=== PATIENT | male | born 1945 | race American Indian/Alaskan Native ===

== ENCOUNTER 2019-04-05 09:46 | Emergency (ER) | payer MEDICARE ==
[2019-04-05 09:51] VITALS: BP 176/105
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
[2019-04-05 11:18] LABS: Basophils % (Auto) 0.3 % (0.0-1.8); Eosinophils % (Auto) 0.3 % (0.0-4.3); Hematocrit 35.7 % (35.5-45.6); Hemoglobin 11.8 gm/dl (11.8-15.2); Lymphocytes # (Auto) 1.4 K/mm3 (1.2-5.4); Lymphocytes % (Auto) 18.8 % (13.4-35.0); Mean Corpuscular HGB Conc 33 % (32-34); Mean Corpuscular Volume 85 fl (84-94); Monocytes # (Auto) 0.7 K/mm3 (0.0-0.8); Monocytes % (Auto) 10.1 % (0.0-7.3); Platelet Count 364 K/mm3 (140-440); Red Blood Count 4.21 M/mm3 (3.65-5.03); Red Cell Distribution Width 14.1 % (13.2-15.2)
[2019-04-05 11:27] LABS: INR 1.1 (0.87-1.13)
[2019-04-05 11:28] LABS: Partial Thromboplastin Time 29.2 Sec. (24.2-36.6)
[2019-04-05 11:45] LABS: Alanine Aminotransferase < 5 units/L (7-56); Albumin 3.1 g/dL (3.9-5); BUN/Creatinine Ratio 20; Blood Urea Nitrogen 12 mg/dL (9-20); Calcium 8.6 mg/dL (8.4-10.2); Hemolysis Index 0
--- NOTE | 2019-04-05 12:01 | Cat Scan Report ---
CT HEAD WITHOUT CONTRAST: HISTORY: Altered mental status. TECHNIQUE: Sequential 2.5mm CT images. COMPARISON: none. FINDINGS: Cerebral Parenchyma: Within normal limits. Cerebellum: Within normal limits. Brainstem: Within normal limits. Ventricles: Normal. Sella: Normal. Extra-axial spaces: Normal. Basal Cisterns: Normal. Intracranial Hemorrhage: None. Midline Shift: None. Calvarium: Normal. Sinuses: Normal. Mastoid Air Cells: Normal. Visualized Orbits: Normal. IMPRESSION: Cranial CT scan within normal limits.
--- NOTE | 2019-04-05 12:02 | XRay Report ---
AP CHEST: HISTORY: Cough AP view of the chest demonstrates a normal mediastinal and cardiac contour with clear lungs and normal bony and soft tissue structures. Calcified granuloma overlying the lingula is noted. IMPRESSION: Unremarkable AP chest.
[2019-04-05 13:58] LABS: Bacteria,Urine 4+ /HPF (Negative); Bilirubin,Urine NEG (Negative); Blood,Urine MOD (Negative); Color,Urine Amber (Yellow); Mucus,Urine 3+ /HPF
== END 2019-04-05 14:38 | disposition home or self-care (01) ==
LOC: ED 09:46
DX: N39.0 Urinary tract infection, site not specified (principal); R63.0 Anorexia
CPT/HCPCS: 36415; 70450; 71045; 80053; 81001; 83735; 83880; 84484; 85025; 85610; 85730; 93005; 93010

== ENCOUNTER 2019-04-24 19:00 | Inpatient (IN) | payer MEDICARE ==
[2019-04-24] MEDS ORDERED: ASPIRIN PO ONE (19:27)
[2019-04-24 20:15] LABS: BUN/Creatinine Ratio 19; Blood Urea Nitrogen 15 mg/dL (9-20); Hemolysis Index 0
--- NOTE | 2019-04-24 20:19 | XRay Report ---
PROCEDURE: XR CHEST 1V AP TECHNIQUE: Chest radiograph single view. HISTORY: Chest Pain COMPARISONS: None . FINDINGS: There is no evidence of infiltrate, pneumothorax or pleural fluid collection. The cardiac silhouette is normal size. The thoracic aorta is mildly tortuous. There is prominence of the ascending thoracic aorta which can be seen with aortic aneurysm in this region. The bony structures are unremarkable. The visualized portion of the upper abdomen is notable for a moderate amount of stool in the visualiz ed portion of the colon. IMPRESSION: 1. No evidence of an acute pulmonary process. 2. Tortuosity thoracic aorta with prominence of the ascending thoracic aorta which can be seen with a neurysm in this region. Comparison with previous imaging studies is recommended. If no prior studies available for comparison , CT chest may be helpful for further evaluation. 3. Appearance of moderate amount of stool in the visualized portion of the colon. This document is electronically signed by Alicia Luo MD., April 24 2019 08:17:22 PM ET
[2019-04-24 20:44] LABS: Basophils % (Auto) 0.5 % (0.0-1.8); Eosinophils % (Auto) 0.3 % (0.0-4.3); Hemoglobin 17.6 gm/dl (11.8-15.2); Lymphocytes # (Auto) 0.8 K/mm3 (1.2-5.4); Lymphocytes % (Auto) 15.9 % (13.4-35.0); Mean Corpuscular HGB Conc 33 % (32-34); Mean Corpuscular Volume 84 fl (84-94); Monocytes # (Auto) 0.4 K/mm3 (0.0-0.8); Monocytes % (Auto) 8.1 % (0.0-7.3); Platelet Count 168 K/mm3 (140-440); Red Blood Count 6.28 M/mm3 (3.65-5.03); Red Cell Distribution Width 15.5 % (13.2-15.2)
[2019-04-24 21:19] LABS: Albumin 3.4 g/dL (3.9-5); Bilirubin,Direct 0.4 mg/dL (0-0.2)
[2019-04-24] MEDS ORDERED: NACL 0.9% 1000 ML 1,000 ML IV ONE (21:28)
[2019-04-24] MEDS ORDERED: TORADOL ONE (21:34)
[2019-04-24] MEDS ORDERED: TORADOL IV ONE (21:35)
[2019-04-24 22:05] LABS: Free T4 (Free Thyroxine) 1.2 ng/dL (0.76-1.46)
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
--- NOTE | 2019-04-24 23:08 | Cat Scan Report ---
PROCEDURE: CT HEAD/BRAIN WO CON TECHNIQUE: Computerized tomography of the head was performed without contrast material. HISTORY: lethargic no appetite COMPARISONS: Head CT dated April 05, 2019. The report of that study is not available for review at the time of this dictation. FINDINGS: There is no evidence of an acute intracranial process, intracranial hemorrhage or mass effect. There are 2 small extra-axial calcifications in the frontal regions bilaterally that may represent sm all calcified meningiomas. These do not result in mass effect. Ventricular size is concordant with the degree of atrophy. There is atherosclerotic vascular calcification of the internal carotid arteries bilaterally at the s kull base. The visualized portions of the orbits, paranasal and mastoid sinuses are unremarkable. There is interval decrease in size of the previously demonstrated probable right frontal scalp hemato ma. The bony structures are unremarkable. IMPRESSION: 1. No evidence of an acute intracranial process, intracranial hemorrhage or mass effect. 2. Interval decrease in size of probable right frontal scalp hematoma.. This document is electronically signed by Alicia Luo MD., April 24 2019 11:06:12 PM ET
--- NOTE | 2019-04-24 23:31 | Cat Scan Report ---
PROCEDURE: CT ANGIO ABDOMEN PELVIS and CT angiogram chest TECHNIQUE: Computerized tomographic angiography of the chest was performed after the IV injection of iodinated nonionic contrast (100 cc of Omnipaque 350) including image processing. The image data wa s postprocessed using 2-dimensional multiplanar reformatted (MPR) and 3-dimensional (MIP and/or volum e rendered) techniques. Automated exposure control, adjustment of mA and/or kV according to patient s ize, or iterative reconstruction dose optimization techniques were utilized. HISTORY: cp, abnl cxr COMPARISONS: Chest x-ray also performed today . FINDINGS: CT ANGIOGRAM CHEST: There is no evidence of infiltrate, pneumothorax or pleural fluid collection. The trachea and bronchi are patent. The heart is normal size. The thoracic aorta is normal caliber. No filling defects are demonstrated within the pulmonary arteries to suggest the presence of pulmonar y artery emboli. There is no evidence of intrathoracic adenopathy. The bony structures are unremarkable. CT ANGIOGRAM ABDOMEN: The liver, spleen, pancreas, kidneys and adrenal glands are unremarkable. The gallbladder is moderately distended but otherwise unremarkable. There is a large mass in the sigmoid colon that measures approximately 9.7 cm (lateral) by 5 cm (AP) by 6.3 cm (craniocaudal). There is a moderate amount of stool in the ascending, transverse and descen ding colon. There are colonic diverticula without radiographic evidence of diverticulitis. There is no evidence of pneumoperitoneum or free fluid. There is an approximately 11 mm lymph node in the periaortic region at the level of the bifurcation. The urinary bladder is mildly distended. There is increased thickness of the urinary bladder wall. The prostate gland is enlarged with maximal axial dimension of 4.8 cm. There is a small left inguinal hernia that contains fat. The bony structures are notable for degenerative change of the hip joints bilaterally, right greater than left and spondylitic change of the lower lumbar spine with canal stenosis. The abdominal aorta is normal caliber. There is normal enhancement of the iliac arteries and major intra-abdominal branches of the aorta wit hout evidence of occlusion or significant stenoses. IMPRESSION: CT ANGIOGRAM CHEST: 1. No evidence of an acute intrathoracic process. 2. No evidence of aortic aneurysm. 3. No evidence of pulmonary artery emboli. CT ANGIOGRAM ABDOMEN AND PELVIS: 1. Large mass in the sigmoid colon. 2. Mildly prominent lymph node periaortic region at the level of the bifurcation. 3. Enlarged prostate gland. 4. Mild increased thickness of the urinary bladder wall which may indicate changes of urinary bladder outlet obstruction. 5. Small left inguinal hernia that contains fat. 6. No evidence of abdominal aortic aneurysm. This document is electronically signed by Alicia Luo MD., April 24 2019 11:29:30 PM ET
[2019-04-25 00:01] LABS: Bilirubin,Urine NEG (Negative); Blood,Urine LG (Negative); Color,Urine Amber (Yellow); Mucus,Urine 2+ /HPF
[2019-04-25] MEDS ORDERED: ROCEPHIN/NS 1 GM/50 ML 1 GM/50 ML BAG IV ONE ×2 (00:55→01:06)
--- NOTE | 2019-04-25 09:56 | History and Physical Report ---
History of Present Illness Date of examination: 04/25/19 Date of admission: 04/24/19 23:53 Chief complaint: Weight loss, fatigue, History of present illness: Patient is a 73-year-old gentleman who has a history of stomach ulcer presented to my office on 04/21/2016 with a history of progressive weight loss for 2 months. Patient stated that he has lost about 50 pounds over several months. He also admits to have severely depressed appetite for about the same period of time. CT scan of the chest, abdomen and pelvis was ordered in my office on the second day of presentation. Patient was advised to follow-up with me within 1 week after completion of the study. However he presented emergency department on 04/24/2019 for intermittent left lower quadrant pain, radiating to the left side of his chest. Severity was 7-8/10. Denies any nausea or vomiting. No hematemesis or melena. Denies any diarrhea. Patient had presented to emergency department about 3 days prior and was diagnosed and treated for urinary tract infection. Patient denies any chest pain at a time of this evaluation. Has no shortness of breath or palpitation. CT of the emergency of the chest, abdomen and pelvis at the ED showed a large mass in the sigmoid colon measuring 7.9 x 5 cm in diameter. There was moderate amount of stool in the colon with colonic diverticula without evidence of diverticulitis. 11 mm lymph node enlargement was also observed in the periaortic region at the level of the bifurcation. BPH was also identified on the CT scan. Blood chemistry shows hyponatremia. EKG was unremarkable for any ischemic changes. Troponin levels x 3 were normal. Admission was requested. Past History Past Medical History: other (Peptic ulcer dissease) Past Surgical History: Other (laparatomy for ) Social history: denies: smoking, alcohol abuse Family history: denies: no significant family history Medications and Allergies Allergies Allergy/AdvReac Type Severity Reaction Status Date / Time No Known Allergies Allergy Verified 04/24/19 20:37 Home Medications Medication Instructions Recorded Confirmed Last Taken Type No Known Home Medications [No 04/25/19 04/25/19 Unknown History Reported Home Medications] Active Meds: Active Medications Ceftriaxone Sodium (Rocephin/Ns 1 Gm/50 Ml) 1 gm in 50 mls @ 100 mls/hr IV Q24HR [facility]; Protocol Review of systems Constitutional: Weight loss, loss of appetite Head: NC/ AT Eyes: Denies any visual impairments. No discharge from the eyes Nose: Denies any rhinorrhea or epistaxis Throats: Denies any post nasal drainage. Ears: Denies any hearing deficits Cardiovascular system: Denies any chest pain, shortness of breath, orthopnea, paroxysmal nocturnal dyspnea, or palpitation. Respiratory system: Denies any cough, difficulty breathing, wheezing, pleuritic chest pain, Gastrointestinal system: Has left-sided abdominal pain, no nausea vomiting, hematemesis or melena. Neurological system: Denies any headache, slurred speech, facial droop, lateralizing weakness Genitalia system: Denies any dysuria, urinary frequency or urgency, urethral discharge Skin: No rashes, hyperpigmented spots. Hematological: Denies any cervical tenderness hemorrhages or petechia. Immunological: Denies any multiple septic spots, Lymphatic: Denies any generalized lymphadenopathy. Endocrine: Denies any polyuria, polydipsia, polyphagia. No heat or cold intolerance. Musculoskeletal system: No joint pain or swelling. Psych: No visual, tactile, auditory or hallucination Exam - Physical Exam Narrative exam: Constitutional: Well-nourished well-developed. In no distress Head: Normocephalic atraumatic Eyes: Pupils are equal round and reactive to light Nose: No enlarged turbinates, no septal deviation. Mouth: Moist mucous membranes. Neck: Supple no thyromegaly. No bruit. No JVD Heart: Regular rate and rhythm, S1-S2 normal. No rubs murmurs or gallop Lungs: Clear to auscultation bilaterally. no rales or rhonchi Abdomen: Soft, nontender. Bowel sound are present. Extremities: No edema, no cyanosis, no clubbing. Neuro: Alert oriented Oriented x3. No focal sensory or motor deficit. Skin: No rashes or hyperpigmented spots Musculoskeletal system: No joint pain or swelling Hematological: No petechia or subcutanous hemorrhages. Immunological: No multiple septic spots on the skin Lymphatic: No generalized lymphadenopathy Psychiatry: Euthymic. Calm. - Constitutional Vitals: Temp Pulse Resp BP Pulse Ox 97.7 F 87 18 121/76 98 04/25/19 01:42 04/25/19 01:42 04/25/19 01:42 04/25/19 01:42 04/25/19 01:42 Results - Labs CBC & Chem 7: 04/24/19 19:47 04/24/19 19:47 Labs: Abnormal lab results 04/24/19 04/24/19 04/24/19 Range/Units 19:47 19:47 19:47 RBC 6.28 H (3.65-5.03) M/mm3 Hgb 17.6 H (11.8-15.2) gm/dl Hct 53.0 H (35.5-45.6) % RDW 15.5 H (13.2-15.2) % [place] % (Auto) 8.1 H (0.0-7.3) % Lymph # 0.8 L (1.2-5.4) K/mm3 Seg Neutrophils % 75.2 H (40.0-70.0) % Sodium 128 L (137-145) mmol/L Chloride 87.5 L (98-107) mmol/L Carbon Dioxide 20 L (22-30) mmol/L Glucose 102 H (75-100) mg/dL Direct Bilirubin 0.4 H (0-0.2) mg/dL ALT 6 L (7-56) units/L Ammonia (25-60) umol/L Albumin 3.4 L (3.9-5) g/dL Ur Specific [place] (1.003-1.030) Urine WBC (Auto) (0.0-6.0) /HPF 04/24/19 04/24/19 Range/Units 21:44 23:22 RBC (3.65-5.03) M/mm3 Hgb (11.8-15.2) gm/dl Hct (35.5-45.6) % RDW (13.2-15.2) % [place] % (Auto) (0.0-7.3) % Lymph # (1.2-5.4) K/mm3 Seg Neutrophils % (40.0-70.0) % Sodium (137-145) mmol/L Chloride (98-107) mmol/L Carbon Dioxide (22-30) mmol/L Glucose (75-100) mg/dL Direct Bilirubin (0-0.2) mg/dL ALT (7-56) units/L Ammonia 18.0 L (25-60) umol/L Albumin (3.9-5) g/dL Ur Specific [place] 1.057 H (1.003-1.030) Urine WBC (Auto) 11.0 H (0.0-6.0) /HPF Assessment and Plan [id number] male who presented to my office on 04/21/2015 with progressive weight loss and profound anorexia. CT scan of chest abdomen and pelvis were ordered. Patient presented to the emergency department on 04/24/2019 for right- sided abdominal pain and progressive weakness with loss. CT scan of the chest, abdomen pelvis showed a 9.7 cm mass in the sigmoid colon with aortic node involvement. Pt also had hyponatremia. Admission was requested. -Sigmoid colon mass with suspicious para-aortic lymph node involvement Possibly neoplastic Obtain GI consult for colonoscopy and biopsy oncology consult thereafter -Weight loss Possibly from GI neoplasm -Diverticulosis without diverticulitis - Tract infection Urine culture obtained Commenced IV Rocephin - Hyponatremia Normal saline infusion trend sodium level - Metabolic acidosis Anticipate improvement with IV hydration - Polycythemia Possibly reactive Hematology consult - DVT and GI prophylaxis with Lovenox and Pepcid -Advised care planning: Patient is full code - Time spent: 35 mins in direct patient care and review of laboratory and radiological data
[2019-04-25] MEDS ORDERED: NACL 0.9% 1000 ML 2,000 ML IV SCH (10:00)
[2019-04-25] MEDS: PEPCID IV SCH ×2 (11:29→21:35)
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
[2019-04-25] MEDS ORDERED: GOLYTELY PO ONE (20:00)
[2019-04-25] MEDS: ROCEPHIN/NS 1 GM/50 ML 1 GM/50 ML BAG IV SCH (21:35)
[2019-04-25] MEDS: LOVENOX SUB-Q SCH (21:35)
[2019-04-26 05:54] LABS: Basophils % (Auto) 0.3 % (0.0-1.8); Eosinophils % (Auto) 0.1 % (0.0-4.3); Hematocrit 29.3 % (35.5-45.6); Hemoglobin 9.6 gm/dl (11.8-15.2); Lymphocytes # (Auto) 0.4 K/mm3 (1.2-5.4); Lymphocytes % (Auto) 7.2 % (13.4-35.0); Mean Corpuscular HGB Conc 33 % (32-34); Mean Corpuscular Volume 85 fl (84-94); Monocytes # (Auto) 0.5 K/mm3 (0.0-0.8); Monocytes % (Auto) 9.9 % (0.0-7.3); Platelet Count 235 K/mm3 (140-440); Red Blood Count 3.44 M/mm3 (3.65-5.03); Red Cell Distribution Width 15.5 % (13.2-15.2)
[2019-04-26 06:27] LABS: Alanine Aminotransferase 5 units/L (7-56); Albumin 2.7 g/dL (3.9-5); BUN/Creatinine Ratio 15; Blood Urea Nitrogen 9 mg/dL (9-20); Calcium 8.3 mg/dL (8.4-10.2); Hemolysis Index 3
--- NOTE | 2019-04-26 09:03 | Progress Note ---
Assessment and Plan 73-year-old male who presented to my office on 04/21/2015 with progressive weight loss and profound anorexia. CT scan of chest, abdomen and pelvis were ordered. Patient presented to the emergency department on 04/24/2019 for right- sided abdominal pain and progressive weakness with loss. CT scan of the chest, abdomen pelvis showed a 9.7 cm mass in the sigmoid colon with aortic node involvement. Pt also had hyponatremia, polycythemia and UTI. -Sigmoid colon mass with suspicious para-aortic lymph node involvement Possibly neoplastic GI consulted. for colonoscopy today. oncology consult thereafter -Weight loss Possibly from GI neoplasm -Diverticulosis without diverticulitis stable - Tract infection F/u with Urine culture report Continue with IV Rocephin - Hyponatremia Normal saline infusion trend sodium level - Metabolic acidosis Anticipate improvement with IV hydration - Polycythemia from hemoconcentration Now anemia with iv hydration - Malnutrition mod to severe from poor po intake. Dietary consult - DVT and GI prophylaxis with Lovenox and Pepcid -Advised care planning: Patient is full code - Time spent: 30 mins in direct patient care and review of laboratory and radiological data Subjective Date of service: 04/26/19 Principal diagnosis: sigmoid colon mass, Wt loss, hyponatremia,polycythemai, UYI Interval history: Abdominal pain improving. Still no chest pain since admission Objective - Exam Narrative Exam: Constitutional:Well-nourished well-developed. In no distress Head: Normocephalic atraumatic Eyes: Pupils are equal round and reactive to light Nose: No enlarged turbinates, no septal deviation. Mouth: Moist mucous membranes. Neck: Supple no thyromegaly. No bruit. No JVD Heart: Regular rate and rhythm, S1-S2 normal. No rubs murmurs or gallop Lungs: Clear to auscultation bilaterally. no rales or rhonchi Abdomen: Soft, nontender. Bowel sound are present. Extremities: No edema, no cyanosis, no clubbing. Neuro: Alert oriented Oriented x3. No focal sensory or motor deficit. Skin: No rashes or hyperpigmented spots Musculoskeletal system: No joint pain or swelling Hematological: No petechia or subcutanous hemorrhages. Immunological: No multiple septic spots on the skin Lymphatic: No generalized lymphadenopathy Psychiatry: Euthymic. Calm. - Constitutional Vitals: Vital Signs - 12hr 04/26/19 04/26/19 02:05 07:21 Temperature 98.1 F 98.5 F Pulse Rate 59 L 58 L Respiratory 18 16 Rate Blood Pressure 115/67 98/53 O2 Sat by Pulse 98 99 Oximetry - Labs CBC & Chem 7: 04/26/19 05:37 04/26/19 05:37 Labs: Abnormal lab results 04/26/19 04/26/19 Range/Units 05:37 05:37 RBC 3.44 L (3.65-5.03) M/mm3 Hgb 9.6 L D (11.8-15.2) gm/dl Hct 29.3 L D (35.5-45.6) % RDW 15.5 H (13.2-15.2) % Lymph % (Auto) 7.2 L (13.4-35.0) % [place] % (Auto) 9.9 H (0.0-7.3) % Lymph # 0.4 L (1.2-5.4) K/mm3 Seg Neutrophils % 82.5 H (40.0-70.0) % Sodium 134 L (137-145) mmol/L Chloride 95.9 L (98-107) mmol/L Carbon Dioxide 21 L (22-30) mmol/L Creatinine 0.6 L (0.8-1.5) mg/dL Glucose 117 H (75-100) mg/dL Calcium 8.3 L (8.4-10.2) mg/dL Phosphorus 2.30 L (2.5-4.5) mg/dL ALT 5 L (7-56) units/L Total Protein 6.0 L D (6.3-8.2) g/dL Albumin 2.7 L (3.9-5) g/dL
[2019-04-26] MEDS: PEPCID IV SCH ×2 (10:50→23:53)
[2019-04-26] MEDS: D5NS 1,000 ML IV SCH ×2 (10:50→23:52)
--- NOTE | 2019-04-26 14:56 | Anesthesia Consultation ---
Anesthesia Consult and Med Hx Date of service: 04/26/19 - Airway Anesthetic Teeth Evaluation: Poor ROM Head & Neck: Adequate Mental/Hyoid Distance: Adequate Mallampati Class: Class III Intubation Access Assessment: Good - Pulmonary Exam CTA: No - Cardiac Exam Cardiac Exam: No Murmur - Pre-Operative Health Status ASA Pre-Surgery Classification: ASA2 Proposed Anesthetic Plan: MAC
--- NOTE | 2019-04-26 14:56 | Anesthesia Day of Surgery ---
Anesthesia Day of Surgery - Day of Surgery Patient Examined: Yes Patient H&P Reviewed: Yes Patient is NPO: Yes Beta Blockers: No
[2019-04-26] MEDS ORDERED: NACL 0.9% 1000 ML 1,000 ML IV SCH (15:00)
[2019-04-26] MEDS ORDERED: DIPRIVAN 10 MG/ML IV ONE ×2 (15:09)
--- NOTE | 2019-04-26 15:32 | Post Operative Note ---
Pre-op diagnosis: Sigmoid mass Post-op diagnosis: same Findings: 1. Obstructing sigmoid mass at 25 cm, precluding scope passage. Biopsied. 2. O/w normal rectum. Procedure: Colonoscopy with biopsy - attempted. Incomplete colonoscopy due to obstruction. Anesthesia: MARYAA Surgeon: OLIVIA TUCKER Estimated blood loss: minimal Pathology: list (1. Sigmoid mass) Specimen disposition: to lab Condition: stable Disposition: floor (Surgical consult called.)
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
--- NOTE | 2019-04-26 17:34 | Operative Report ---
PROCEDURE PERFORMED: Incomplete colonoscopy with biopsy. PREOPERATIVE DIAGNOSIS: Sigmoid mass. POSTOPERATIVE DIAGNOSIS: Sigmoid mass. SEDATION: MAC by Anesthesia. HISTORY: The patient is a 73-year-old man with weight loss and intermittent abdominal pain for the last several months, who has a CT showing a 9 cm sigmoid mass. Procedure, indications, risks, and benefits were explained and consent was obtained. DESCRIPTION OF PROCEDURE: The patient was placed in left lateral decubitus position and sedated. Agile[employer] video colonoscope was passed through the rectum after digital examination and passed with minimal difficulty to the distal sigmoid colon where a malignant appearing obstructing mass was encountered. Despite multiple attempts, I could not find a safe passage beyond it. Biopsies were obtained. Scope was then withdrawn with close inspection of mucosa. FINDINGS: 1. Irregular obstructing sigmoid mass involving the distal sigmoid starting approximately 25 cm from the anus, biopsied. Scope could not traverse this area. 2. Rectum is otherwise normal appearing. The patient tolerated the procedure well without immediate complications. ESTIMATED BLOOD LOSS: Minimal. IMPRESSION: 1. Obstructing sigmoid mass - malignant. biopsied. 2. Normal rectum. PLAN: 1. Follow up biopsies. 2. Surgical evaluation for resection. JOB# [id number] HRC/NTS
--- NOTE | 2019-04-26 23:25 | Event Note ---
Date: 04/26/19 [id number]
[2019-04-26] MEDS: ROCEPHIN/NS 1 GM/50 ML 1 GM/50 ML BAG IV SCH (23:52)
[2019-04-26] MEDS: LOVENOX SUB-Q SCH (23:53)
[2019-04-27] MEDS: D5NS 1,000 ML IV SCH (05:24)
[2019-04-27 06:02] LABS: Eosinophils # (Auto) 0.1 K/mm3 (0.0-0.4); Eosinophils % (Auto) 1.8 % (0.0-4.3); Hematocrit 26.4 % (35.5-45.6); Hemoglobin 8.9 gm/dl (11.8-15.2); Lymphocytes # (Auto) 0.7 K/mm3 (1.2-5.4); Lymphocytes % (Auto) 17.3 % (13.4-35.0); Mean Corpuscular HGB Conc 34 % (32-34); Mean Corpuscular Volume 85 fl (84-94); Monocytes # (Auto) 0.6 K/mm3 (0.0-0.8); Platelet Count 222 K/mm3 (140-440); Red Blood Count 3.12 M/mm3 (3.65-5.03); Red Cell Distribution Width 15.2 % (13.2-15.2)
[2019-04-27 06:29] LABS: Albumin 2.4 g/dL (3.9-5); BUN/Creatinine Ratio 8; Blood Urea Nitrogen 4 mg/dL (9-20); Calcium 7.7 mg/dL (8.4-10.2); Hemolysis Index 3
[2019-04-27 06:30] LABS: Alanine Aminotransferase < 5 units/L (7-56)
--- NOTE | 2019-04-27 07:14 | Hem/Onc Progress Note ---
Assessment and Plan 1. Colon mass. 2. Sigmoid area. 3. Lymph nodes and periaortic tissue. 4. CTA chest, no lung lesions. Clinically, this is a colonic neoplasm. History of loss of weight is worrisome. We will await surgical evaluation. CEA workup will be ordered. 5. I discussed with the patient regarding the need for GI evaluation, biopsy and once surgical proof of cancer, we will see if surgery can be done to get an accurate staging issues. 6. History of fatigue secondary to neoplasm. 7. Elevated hemoglobin and hematocrit likely spurious, so today's hemoglobin is low. 8. Electrolyte issues. I will follow the patient during inpatient stay. - Patient Problems (1) Mass of colon Current Visit: Yes Status: Acute Subjective Date of service: 04/27/19 Principal diagnosis: colon mass Interval history: due colon sx scopy shows colon mass Objective - Constitutional Vitals: Last Vital Signs Temp 97.4 F L 04/27/19 03:14 Pulse 69 04/27/19 03:14 Resp 18 04/27/19 03:14 BP 91/47 04/27/19 03:14 Pulse Ox 98 04/27/19 03:14 Pain Intensity (0-10): denies any pain General appearance: no acute distress Performance status: 2- selfcare, ambulatory - EENT Eyes: EOM intact ENT: hearing intact Lymph node exam: negative cervical - Neck Neck: normal ROM - Respiratory Respiratory effort: Positive: normal Respiratory: negative: CTA - Cardiovascular Heart Sounds: Present: S1 & S2 Extremities: normal temperature - Gastrointestinal General gastrointestinal: Present: soft Rectal Exam: deferred - Genitourinary Male genitourinary: Present: deferred - Integumentary Integumentary: warm - Musculoskeletal Musculoskeletal: strength equal bilaterally - Neurologic Neurologic: moves all extremities - Labs Lab Results: Laboratory Results - last 24 hr 04/26/19 04/26/19 04/27/19 05:37 17:13 05:17 WBC 4.0 L RBC 3.12 L Hgb 9.6 L D 8.9 L Hct 29.3 L D 26.4 L MCV 85 MCH 28 MCHC 34 RDW 15.2 Plt Count 222 Lymph % (Auto) 17.3 [place] % (Auto) 15.0 H Eos % (Auto) 1.8 Baso % (Auto) 1.0 Lymph # 0.7 L [place] # 0.6 Eos # 0.1 Baso # 0.0 Seg Neutrophils % 64.9 Seg Neutrophils # 2.6 Sodium Potassium Chloride Carbon Dioxide Anion Gap BUN Creatinine Estimated GFR BUN/Creatinine Ratio Glucose Calcium Total Bilirubin AST ALT Alkaline Phosphatase Total Protein Albumin Albumin/Globulin Ratio Blood Type B NEGATIVE Antibody Screen Negative 04/27/19 05:17 WBC RBC Hgb Hct MCV MCH MCHC RDW Plt Count Lymph % (Auto) [place] % (Auto) Eos % (Auto) Baso % (Auto) Lymph # [place] # Eos # Baso # Seg Neutrophils % Seg Neutrophils # Sodium 135 L Potassium 3.0 L D Chloride 100.3 Carbon Dioxide 24 Anion Gap 14 BUN 4 L Creatinine 0.5 L Estimated GFR > 60 BUN/Creatinine Ratio 8 Glucose 130 H Calcium 7.7 L Total Bilirubin 0.50 AST 13 ALT < 5 L Alkaline Phosphatase 49 Total Protein 5.0 L Albumin 2.4 L Albumin/Globulin Ratio 0.9 Blood Type Antibody Screen Medications & Allergies - Medications Allergies/Adverse Reactions: Allergies No Known Allergies Allergy (Verified 04/24/19 20:37) Home Medications: Home Medications Medication Instructions Recorded Confirmed Last Taken Type RX: No Known Home Medications [No 04/25/19 04/25/19 Unknown History Reported Home Medications] Active Medications: Generic Name Dose Route Start Last Admin Trade Name Antonq PRN Reason Stop Dose Admin Enoxaparin Sodium 40 mg 04/25/19 22:00 04/26/19 23:53 Lovenox SUB-Q Not Given QDAY@2200 ELYSSA Famotidine 20 mg 04/25/19 11:00 04/26/19 23:53 Pepcid IV 20 mg BID ELYSSA Administration Ceftriaxone Sodium 1 gm in 50 mls @ 100 mls/hr 04/25/19 22:00 04/26/19 23:52 Rocephin/Ns 1 Gm/50 Ml IV 100 mls/hr Q24H ELYSSA Administration Protocol Dextrose/Sodium Chloride 1,000 mls @ 125 mls/hr 04/26/19 10:00 04/27/19 05:24 D5ns IV 125 mls/hr DIRECT ELYSSA Administration Sodium Chloride 1,000 mls @ 50 mls/hr 04/26/19 15:00 Nacl 0.9% 1000 Ml IV DIRECT ELYSSA
[2019-04-27] MEDS: KCL 10MEQ/100ML 10 MEQ/100 ML BAG IV SCH ×4 (08:15→22:45)
[2019-04-27] MEDS: PEPCID IV SCH ×2 (09:26→22:25)
--- NOTE | 2019-04-27 09:43 | Progress Note ---
Assessment and Plan 73-year-old male who presented to my office on 04/21/2015 with progressive weight loss and profound anorexia. CT scan of chest, abdomen and pelvis were ordered. Patient presented to the emergency department on 04/24/2019 for right- sided abdominal pain and progressive weakness with loss. CT scan of the chest, abdomen pelvis showed a 9.7 cm mass in the sigmoid colon with aortic node involvement. Pt also had hyponatremia, polycythemia and UTI. -Obstructing Sigmoid colon mass identified on colonoscopy done 04/26/2019 CT scan shows suspicious para-aortic lymph node involvement Possibly neoplastic GI consulted oncology consult consulted -Weight loss Possibly from GI neoplasm -Diverticulosis without diverticulitis stable - Tract infection F/u with Urine culture report Continue with IV Rocephin - Hyponatremia- improved Normal saline infusion trend sodium level - Hypokalemia He continues 40 mg of potassium - Metabolic acidosis- Anticipate improvement with IV hydration - Polycythemia from hemoconcentration Now anemia with iv hydration - Malnutrition mod to severe from poor po intake. Dietary consult - DVT and GI prophylaxis with Lovenox and Pepcid -Advised care planning: Patient is full code - Time spent: 30 mins in direct patient care and review of laboratory and radiological data Subjective Date of service: 04/27/19 Principal diagnosis: sigmoid colon mass, Wt loss, hyponatremia,polycythemai, UYI Interval history: Abdominal pain resolved. No fever no chest pain. Had colonoscopy yesterday 04/26/19, with obstructing large sigmoid mass identified. Objective - Exam Narrative Exam: Constitutional:Well-nourished well-developed. In no distress Head: Normocephalic atraumatic Eyes: Pupils are equal round and reactive to light Nose: No enlarged turbinates, no septal deviation. Mouth: Moist mucous membranes. Neck: Supple no thyromegaly. No bruit. No JVD Heart: Regular rate and rhythm, S1-S2 normal. No rubs murmurs or gallop Lungs: Clear to auscultation bilaterally. no rales or rhonchi Abdomen: Soft, nontender. Bowel sound are present. Extremities: No edema, no cyanosis, no clubbing. Neuro: Alert oriented Oriented x3. No focal sensory or motor deficit. Skin: No rashes or hyperpigmented spots Musculoskeletal system: No joint pain or swelling Hematological: No petechia or subcutanous hemorrhages. Immunological: No multiple septic spots on the skin Lymphatic: No generalized lymphadenopathy Psychiatry: Euthymic. Calm. - Constitutional Vitals: Vital Signs - 12hr 04/27/19 04/27/19 04/27/19 00:00 03:14 07:48 Temperature 97.4 F L 98.0 F Pulse Rate 69 60 Pulse Rate [ 69 Left Brachial] Respiratory 18 18 20 Rate Blood Pressure 91/47 93/58 O2 Sat by Pulse 98 98 96 Oximetry - Labs CBC & Chem 7: 04/28/19 05:47 04/28/19 05:47 Labs: Abnormal lab results 04/26/19 04/27/19 04/27/19 Range/Units 17:13 05:17 05:17 WBC 4.0 L (4.5-11.0) K/mm3 RBC 3.12 L (3.65-5.03) M/mm3 Hgb 8.9 L (11.8-15.2) gm/dl Hct 26.4 L (35.5-45.6) % [place] % (Auto) 15.0 H (0.0-7.3) % Lymph # 0.7 L (1.2-5.4) K/mm3 Sodium 135 L (137-145) mmol/L Potassium 3.0 L D (3.6-5.0) mmol/L BUN 4 L (9-20) mg/dL Creatinine 0.5 L (0.8-1.5) mg/dL Glucose 130 H (75-100) mg/dL Calcium 7.7 L (8.4-10.2) mg/dL ALT < 5 L (7-56) units/L Total Protein 5.0 L (6.3-8.2) g/dL Albumin 2.4 L (3.9-5) g/dL Crossmatch See Detail
[2019-04-27] MEDS ORDERED: KCL 40 MEQ in NACL 0.9% 500 ML 500 ML IV ONE (10:00)
[2019-04-27] MEDS ORDERED: ANCEF/STERILE WATER 2 GM/20 ML 2 GM/20 ML SYRINGE IV SCH (12:00)
--- NOTE | 2019-04-27 12:02 | Anesthesia Day of Surgery ---
Anesthesia Day of Surgery - Day of Surgery Patient Examined: Yes Patient H&P Reviewed: Yes Patient is NPO: Yes
[2019-04-27] MEDS ORDERED: LACTATED RINGERS 1,000 ML ONE (12:46)
[2019-04-27] MEDS: LACTATED RINGERS 1,000 ML IV SCH ×2 (12:50→22:41)
[2019-04-27] MEDS ORDERED: DECADRON ONE (12:55)
[2019-04-27] MEDS ORDERED: DILAUDID ONE ×2 (12:55→17:48)
[2019-04-27] MEDS ORDERED: ZEMURON IV ONE (12:55)
[2019-04-27] MEDS ORDERED: DIPRIVAN 10 MG/ML IV ONE (12:55)
[2019-04-27] MEDS ORDERED: XYLOCAINE MPF 2% ONE (12:55)
[2019-04-27] MEDS ORDERED: ZOFRAN ONE (12:55)
[2019-04-27] MEDS ORDERED: FLAGYL 500 MG/100 ML 500 MG/100 ML BAG IV NR (13:00)
[2019-04-27] MEDS ORDERED: NACL 0.9% IR ONE (14:00)
[2019-04-27] MEDS ORDERED: MARCAINE-EPI 0.5%-1:200,000 INFILTRATI ONE (16:37)
[2019-04-27] MEDS ORDERED: XYLOCAINE 1% 20 mL ONE (16:38)
[2019-04-27] MEDS ORDERED: SUBLIMAZE ONE (16:53)
--- NOTE | 2019-04-27 16:56 | Post Operative Note ---
Date of procedure: 04/27/19 Pre-op diagnosis: Obstructing sigmoid colon mass Post-op diagnosis: same Findings: large obstructing colon mass with adhesion to segment of small bowel, surrounding inflammatory changes Procedure: exploratory laparotomy, sigmoidectomy, primary anastamosis, mobilization of splenic flexure Anesthesia: GETA, other (ESVIN block) Surgeon: SELENA CUBA Equipment Validation Engineer: AROLDO GILBERT Estimated blood loss: minimal Pathology: list (sigmoid colon and anastamotic donuts) Specimen disposition: to lab Condition: stable Disposition: PACU
--- NOTE | 2019-04-27 17:31 | Post Anesthesia Evaluation ---
- Post Anesthesia Evaluation Patient Participated: Yes Airway Patent: Yes Stable Respiratory Function: Yes Nausea/Vomiting: No Temp > 96.8F: Yes Pain Manageable: Yes Adequeate Hydration: Yes Anesthesia Complications: No Block Receding Appropriately: Yes Patient on Ventilator: No
[2019-04-27] MEDS: DILAUDID IV PRN ×2 (17:45→17:55)
[2019-04-27] MEDS ORDERED: VERSED IV ONE (18:35)
[2019-04-27] MEDS ORDERED: VERSED ONE (18:35)
[2019-04-27] MEDS ORDERED: NARCAN 0.4 MG/1 ML IV PRN (20:15)
[2019-04-27] MEDS ORDERED: MORPHINE PCA 30MG/30ML IV SCH (20:15)
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
[2019-04-27] MEDS: LOVENOX SUB-Q SCH (22:25)
[2019-04-27] MEDS: FLAGYL 500 MG/100 ML 500 MG/100 ML BAG IV SCH (22:29)
[2019-04-27] MEDS: ceFAZolin 2 GM in NACL 0.9% 100 ML IV SCH (22:42)
[2019-04-27] MEDS: ROCEPHIN/NS 1 GM/50 ML 1 GM/50 ML BAG IV SCH (23:34)
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
[2019-04-28] MEDS: FLAGYL 500 MG/100 ML 500 MG/100 ML BAG IV SCH (06:38)
[2019-04-28] MEDS: ceFAZolin 2 GM in NACL 0.9% 100 ML IV SCH (06:39)
[2019-04-28 06:57] LABS: Hemoglobin 9.5 gm/dl (11.8-15.2); Lymphocytes # (Auto) 0.7 K/mm3 (1.2-5.4); Lymphocytes % (Auto) 7.9 % (13.4-35.0); Mean Corpuscular HGB Conc 33 % (32-34); Mean Corpuscular Volume 87 fl (84-94); Monocytes # (Auto) 0.7 K/mm3 (0.0-0.8); Monocytes % (Auto) 7.3 % (0.0-7.3); Platelet Count 277 K/mm3 (140-440); Red Blood Count 3.35 M/mm3 (3.65-5.03); Red Cell Distribution Width 15.6 % (13.2-15.2)
[2019-04-28 07:24] LABS: Alanine Aminotransferase 6 units/L (7-56); Albumin 2.3 g/dL (3.9-5); BUN/Creatinine Ratio 8; Blood Urea Nitrogen 6 mg/dL (9-20); Calcium 7.9 mg/dL (8.4-10.2); Hemolysis Index 0
--- NOTE | 2019-04-28 07:40 | Hem/Onc Progress Note ---
Assessment and Plan 1. Colon mass. 2. Sigmoid area. 3. Lymph nodes and periaortic tissue. 4. CTA chest, no lung lesions. Clinically, this is a colonic neoplasm. History of loss of weight is worrisome. 5. I discussed with the patient regarding the need for GI evaluation, biopsy and once surgical proof of cancer, we will see if surgery can be done to get an accurate staging issues. 6. History of fatigue secondary to neoplasm. 7. Elevated hemoglobin and hematocrit likely spurious, so today's hemoglobin is low. 8. Electrolyte issues. I will follow the patient during inpatient stay. 04/28 - pt had sx on 04/27 CEA follow up - Patient Problems (1) Mass of colon Current Visit: Yes Status: Acute Subjective Date of service: 04/28/19 Principal diagnosis: colon mass Interval history: pt had colon sx Objective - Constitutional Vitals: Last Vital Signs Temp 98.1 F 04/28/19 04:50 Pulse 97 H 04/28/19 04:50 Resp 8 L 04/28/19 04:50 BP 134/92 04/28/19 04:50 Pulse Ox 98 04/28/19 04:50 Pain Intensity (0-10): 2/10 (abdo - post op) General appearance: mild distress Performance status: 3-limited selfcare - EENT Eyes: EOM intact ENT: hearing intact Lymph node exam: negative cervical - Neck Neck: normal ROM - Respiratory Respiratory effort: Positive: normal Respiratory: bilateral: CTA (anteriorly) - Cardiovascular Heart Sounds: Present: S1 & S2 Extremities: No edema - Gastrointestinal General gastrointestinal: Present: other (bandage - post op) Rectal Exam: deferred - Genitourinary Male genitourinary: Present: deferred - Integumentary Integumentary: warm - Musculoskeletal Musculoskeletal: generalized weakness - Neurologic Neurologic: moves all extremities - Labs Lab Results: Laboratory Results - last 24 hr 04/26/19 04/27/19 04/28/19 17:13 13:08 05:47 WBC 9.0 RBC 3.35 L Hgb 9.5 L POC Hgb 9.2 L Hct 29.0 L POC Hct 27 L MCV 87 MCH 28 MCHC 33 RDW 15.6 H Plt Count 277 Lymph % (Auto) 7.9 L [place] % (Auto) 7.3 Eos % (Auto) 0.0 Baso % (Auto) 0.0 Lymph # 0.7 L [place] # 0.7 Eos # 0.0 Baso # 0.0 Seg Neutrophils % 84.8 H Seg Neutrophils # 7.6 POC Sodium 139 POC Potassium 3.5 POC Chloride 99 Sodium Potassium Chloride Carbon Dioxide Anion Gap POC BUN < 3 L BUN Creatinine Estimated GFR BUN/Creatinine Ratio Glucose POC Glucose 90 Calcium Phosphorus Magnesium Total Bilirubin AST ALT Alkaline Phosphatase Total Protein Albumin Albumin/Globulin Ratio Blood Type B NEGATIVE Antibody Screen Negative Crossmatch See Detail 04/28/19 05:47 WBC RBC Hgb POC Hgb Hct POC Hct MCV MCH MCHC RDW Plt Count Lymph % (Auto) [place] % (Auto) Eos % (Auto) Baso % (Auto) Lymph # [place] # Eos # Baso # Seg Neutrophils % Seg Neutrophils # POC Sodium POC Potassium POC Chloride Sodium 139 Potassium 4.6 D Chloride 102.7 Carbon Dioxide 24 Anion Gap 17 POC BUN BUN 6 L Creatinine 0.8 D Estimated GFR > 60 BUN/Creatinine Ratio 8 Glucose 173 H POC Glucose Calcium 7.9 L Phosphorus 3.40 Magnesium 1.60 L Total Bilirubin 0.40 AST 14 ALT 6 L Alkaline Phosphatase 53 Total Protein 5.4 L Albumin 2.3 L Albumin/Globulin Ratio 0.7 Blood Type Antibody Screen Crossmatch Medications & Allergies - Medications Allergies/Adverse Reactions: Allergies No Known Allergies Allergy (Verified 04/24/19 20:37) Home Medications: Home Medications Medication Instructions Recorded Confirmed Last Taken Type No Known Home Medications [No 04/25/19 04/25/19 Unknown History Reported Home Medications] Active Medications: Generic Name Dose Route Start Last Admin Trade Name Freq PRN Reason Stop Dose Admin Enoxaparin Sodium 40 mg 04/25/19 22:00 04/27/19 22:25 Lovenox SUB-Q 40 mg QDAY@2200 ELYSSA Administration Famotidine 20 mg 04/25/19 11:00 04/27/19 22:25 Pepcid IV 20 mg BID ELYSSA Administration Hydromorphone HCl 0.5 mg 04/27/19 17:48 04/27/19 17:55 Dilaudid IV 0.5 mg Q10MIN PRN Administration Pain , Severe (7-10) Ceftriaxone Sodium 1 gm in 50 mls @ 100 mls/hr 04/25/19 22:00 04/28/19 02:38 Rocephin/Ns 1 Gm/50 Ml IV Infused Q24H ELYSSA Infusion Protocol Dextrose/Sodium Chloride 1,000 mls @ 125 mls/hr 04/26/19 10:00 04/27/19 22:45 D5ns IV Infused DIRECT ELYSSA Infusion Sodium Chloride 1,000 mls @ 50 mls/hr 04/26/19 15:00 Nacl 0.9% 1000 Ml IV DIRECT ELYSSA Lactated Ringer's 1,000 mls @ 75 mls/hr 04/27/19 12:00 04/27/19 22:41 Lactated Ringers IV 75 mls/hr DIRECT ELYSSA Administration Morphine Sulfate 0 mg 04/27/19 20:15 04/27/19 22:20 Morphine Draw Bench Operator 30mg/30ml IV Not Given DIRECT ELYSSA Protocol Naloxone HCl 0.1 mg 04/27/19 20:15 Narcan 0.4 Mg/1 Ml IV Q2MIN PRN Res Rate </= 8 or 02 SAT < 92% Ondansetron HCl 4 mg 04/27/19 20:15 Zofran IV Q6H PRN Nausea
--- NOTE | 2019-04-28 09:39 | Progress Note ---
Assessment and Plan 73-year-old male who presented to my office on 04/21/2015 with progressive weight loss and profound anorexia. CT scan of chest, abdomen and pelvis were ordered. Patient presented to the emergency department on 04/24/2019 for right- sided abdominal pain and progressive weakness with loss. CT scan of the chest, abdomen pelvis showed a 9.7 cm mass in the sigmoid colon with aortic node involvement. Pt also had hyponatremia, and UTI. -Sigmoid colon mass with suspicious para-aortic lymph node involvement s/p sigmodectomy and priomary anastomosis -Weight loss Possibly from GI neoplasm -Diverticulosis without diverticulitis stable - Tract infection Urine culture report showed no growth Continue with IV Rocephin - Hyponatremia - improved Normal saline infusion trend sodium level - Malnutrition severe from poor po intake. Dietary consult - DVT and GI prophylaxis with Lovenox and Pepcid -Advised care planning: Patient is full code - Time spent: 30 mins in direct patient care and review of laboratory and radiological data Subjective Date of service: 04/28/19 Principal diagnosis: sigmoid colon mass, Wt loss, hyponatremia,polycythemai, UYI Interval history: Has exploratory lap yesterday 04/27/19 with resection of sigmoid colon for colonic mas and primary anastomosis. Pt is doing well post op. C/o post op pain. Objective - Exam Narrative Exam: Constitutional:Well-nourished well-developed. In no distress Head: Normocephalic atraumatic Eyes: Pupils are equal round and reactive to light Nose: No enlarged turbinates, no septal deviation. Mouth: Moist mucous membranes. Neck: Supple no thyromegaly. No bruit. No JVD Heart: Regular rate and rhythm, S1-S2 normal. No rubs murmurs or gallop Lungs: Clear to auscultation bilaterally. no rales or rhonchi Abdomen: Soft, dry abdominal surgical sound ressingnontender. Bowel sound are present. Extremities: No edema, no cyanosis, no clubbing. Neuro: Alert oriented Oriented x3. No focal sensory or motor deficit. Skin: No rashes or hyperpigmented spots Musculoskeletal system: No joint pain or swelling Hematological: No petechia or subcutanous hemorrhages. Immunological: No multiple septic spots on the skin Lymphatic: No generalized lymphadenopathy Psychiatry: Euthymic. Calm. - Constitutional Vitals: Vital Signs - 12hr 04/27/19 04/28/19 04/28/19 22:00 00:17 04:50 Temperature 97.7 F 98.1 F Pulse Rate 92 H 97 H Respiratory 18 8 L 8 L Rate Blood Pressure 101/77 134/92 O2 Sat by Pulse 96 100 98 Oximetry 04/28/19 08:07 Temperature Pulse Rate Respiratory Rate Blood Pressure O2 Sat by Pulse 98 Oximetry - Labs CBC & Chem 7: 04/28/19 05:47 04/28/19 05:47 Labs: Abnormal lab results 04/26/19 04/27/19 04/28/19 Range/Units 17:13 13:08 05:47 RBC 3.35 L (3.65-5.03) M/mm3 Hgb 9.5 L (11.8-15.2) gm/dl POC Hgb 9.2 L (12-17) Hct 29.0 L (35.5-45.6) % POC Hct 27 L (38-51) RDW 15.6 H (13.2-15.2) % Lymph % (Auto) 7.9 L (13.4-35.0) % Lymph # 0.7 L (1.2-5.4) K/mm3 Seg Neutrophils % 84.8 H (40.0-70.0) % POC BUN < 3 L (8-26) mg/dl BUN (9-20) mg/dL Glucose (75-100) mg/dL Calcium (8.4-10.2) mg/dL Magnesium (1.7-2.3) mg/dL ALT (7-56) units/L Total Protein (6.3-8.2) g/dL Albumin (3.9-5) g/dL Crossmatch See Detail 04/28/19 Range/Units 05:47 RBC (3.65-5.03) M/mm3 Hgb (11.8-15.2) gm/dl POC Hgb (12-17) Hct (35.5-45.6) % POC Hct (38-51) RDW (13.2-15.2) % Lymph % (Auto) (13.4-35.0) % Lymph # (1.2-5.4) K/mm3 Seg Neutrophils % (40.0-70.0) % POC BUN (8-26) mg/dl BUN 6 L (9-20) mg/dL Glucose 173 H (75-100) mg/dL Calcium 7.9 L (8.4-10.2) mg/dL Magnesium 1.60 L (1.7-2.3) mg/dL ALT 6 L (7-56) units/L Total Protein 5.4 L (6.3-8.2) g/dL Albumin 2.3 L (3.9-5) g/dL Crossmatch
[2019-04-28] MEDS: PEPCID IV SCH ×2 (09:41→22:49)
--- NOTE | 2019-04-28 11:02 | Progress Note ---
Assessment and Plan 73 yo M s/p exploratory laparotomy, sigmoidectomy, primary anastamosis, mobilization of splenic flexure, POD 1 for obstructing colon mass Plan: 1. Clear liquid diet 2. maintenance IVF 3. SCIPS abx 4. 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 Await bowel function 6. DVT ppx - lovenox 7. IS/pulm toilet 8. DC FRIEDMAN 9. OOB/PT consult 10. await path Thank you, please call with questions Subjective Date of service: 04/28/19 Narrative: Pt seen and examined. No acute complaints. Denies pain. No f/c. Has not been out of bed yet. No flatus or BM. No n/v Objective Vital Signs - 12hr 04/28/19 04/28/19 04/28/19 00:17 04:50 07:53 Temperature 97.7 F 98.1 F 98.3 F Pulse Rate 92 H 97 H 98 H Respiratory 8 L 8 L 18 Rate Blood Pressure 101/77 134/92 136/86 O2 Sat by Pulse 100 98 96 Oximetry 04/28/19 08:07 Temperature Pulse Rate Respiratory Rate Blood Pressure O2 Sat by Pulse 98 Oximetry - General physical appearance Narrative Exam: Gen: AAOx3. NAD CV: s1, S2+ resp; even and unlabored Abd: soft, NT, ND. dressing with some serosang staining on lower aspect Ext: no c/c/e : friedman with clear yellow urine - Labs 04/28/19 05:47 04/28/19 05:47 Diabetes panel 04/28/19 Range/Units 05:47 Sodium 139 (137-145) mmol/L Potassium 4.6 D (3.6-5.0) mmol/L Chloride 102.7 (98-107) mmol/L Carbon Dioxide 24 (22-30) mmol/L BUN 6 L (9-20) mg/dL Creatinine 0.8 D (0.8-1.5) mg/dL Glucose 173 H (75-100) mg/dL Calcium 7.9 L (8.4-10.2) mg/dL AST 14 (5-40) units/L ALT 6 L (7-56) units/L Alkaline Phosphatase 53 (35-129) units/L Total Protein 5.4 L (6.3-8.2) g/dL Albumin 2.3 L (3.9-5) g/dL Calcium panel 04/28/19 Range/Units 05:47 Calcium 7.9 L (8.4-10.2) mg/dL Phosphorus 3.40 (2.5-4.5) mg/dL Albumin 2.3 L (3.9-5) g/dL Pituitary panel 04/28/19 Range/Units 05:47 Sodium 139 (137-145) mmol/L Potassium 4.6 D (3.6-5.0) mmol/L Chloride 102.7 (98-107) mmol/L Carbon Dioxide 24 (22-30) mmol/L BUN 6 L (9-20) mg/dL Creatinine 0.8 D (0.8-1.5) mg/dL Glucose 173 H (75-100) mg/dL Calcium 7.9 L (8.4-10.2) mg/dL Adrenal panel 04/28/19 Range/Units 05:47 Sodium 139 (137-145) mmol/L Potassium 4.6 D (3.6-5.0) mmol/L Chloride 102.7 (98-107) mmol/L Carbon Dioxide 24 (22-30) mmol/L BUN 6 L (9-20) mg/dL Creatinine 0.8 D (0.8-1.5) mg/dL Glucose 173 H (75-100) mg/dL Calcium 7.9 L (8.4-10.2) mg/dL Total Bilirubin 0.40 (0.1-1.2) mg/dL AST 14 (5-40) units/L ALT 6 L (7-56) units/L Alkaline Phosphatase 53 (35-129) units/L Total Protein 5.4 L (6.3-8.2) g/dL Albumin 2.3 L (3.9-5) g/dL
[2019-04-28] MEDS: D5NS 1,000 ML IV SCH ×2 (16:38→23:32)
[2019-04-28] MEDS: ROCEPHIN/NS 1 GM/50 ML 1 GM/50 ML BAG IV SCH (22:49)
[2019-04-28] MEDS: LOVENOX SUB-Q SCH (22:49)
--- NOTE | 2019-04-29 07:34 | Hem/Onc Progress Note ---
Assessment and Plan 1. Colon mass. 2. Sigmoid area. 3. Lymph nodes and periaortic tissue. 4. CTA chest, no lung lesions. Clinically, this is a colonic neoplasm. History of loss of weight is worrisome. 5. I discussed with the patient regarding the need for GI evaluation, biopsy and once surgical proof of cancer, we will see if surgery can be done to get an accurate staging issues. 6. History of fatigue secondary to neoplasm. 7. Elevated hemoglobin and hematocrit likely spurious, so today's hemoglobin is low. 8. Electrolyte issues. I will follow the patient during inpatient stay. 04/29 - pt had sx on 04/27 CEA 2- not reliable to follow verbal path - colon ca - Patient Problems (1) Mass of colon Current Visit: Yes Status: Acute Subjective Date of service: 04/29/19 Principal diagnosis: colon cancer Interval history: feeling better Objective - Constitutional Vitals: Last Vital Signs Temp 98.1 F 04/29/19 04:05 Pulse 87 04/29/19 04:05 Resp 16 04/29/19 04:05 BP 96/61 04/29/19 04:05 Pulse Ox 89 04/29/19 04:05 Pain Intensity (0-10): 11/25 (post op) General appearance: no acute distress Performance status: 3-limited selfcare - EENT Eyes: PERRL ENT: hearing intact Lymph node exam: negative cervical - Neck Neck: normal ROM - Respiratory Respiratory effort: Positive: normal Respiratory: bilateral: CTA - Cardiovascular Heart Sounds: Present: S1 & S2 Extremities: No edema, normal temperature - Gastrointestinal General gastrointestinal: Present: soft, other (jake) Rectal Exam: deferred - Genitourinary Male genitourinary: Present: deferred - Integumentary Integumentary: warm - Musculoskeletal Musculoskeletal: generalized weakness - Neurologic Neurologic: moves all extremities Medications & Allergies - Medications Allergies/Adverse Reactions: Allergies No Known Allergies Allergy (Verified 04/24/19 20:37) Home Medications: Home Medications Medication Instructions Recorded Confirmed Last Taken Type No Known Home Medications [No 04/25/19 04/25/19 Unknown History Reported Home Medications] Active Medications: Generic Name Dose Route Start Last Admin Trade Name Freq PRN Reason Stop Dose Admin Enoxaparin Sodium 40 mg 04/25/19 22:00 04/28/19 22:49 Lovenox SUB-Q 40 mg QDAY@2200 ELYSSA Administration Famotidine 20 mg 04/25/19 11:00 04/28/19 22:49 Pepcid IV 20 mg BID ELYSSA Administration Hydromorphone HCl 0.5 mg 04/27/19 17:48 04/27/19 17:55 Dilaudid IV 0.5 mg Q10MIN PRN Administration Pain , Severe (7-10) Ceftriaxone Sodium 1 gm in 50 mls @ 100 mls/hr 04/25/19 22:00 04/28/19 22:49 Rocephin/Ns 1 Gm/50 Ml IV 100 mls/hr Q24H ELYSSA Administration Protocol Dextrose/Sodium Chloride 1,000 mls @ 125 mls/hr 04/26/19 10:00 04/28/19 23:32 D5ns IV 125 mls/hr DIRECT ELYSSA Administration Sodium Chloride 1,000 mls @ 50 mls/hr 04/26/19 15:00 Nacl 0.9% 1000 Ml IV DIRECT ELYSSA Morphine Sulfate 0 mg 04/27/19 20:15 04/27/19 22:20 Morphine Smooth And Burr Worker [employer]ites 30mg/30ml IV Not Given DIRECT ELYSSA Protocol Naloxone HCl 0.1 mg 04/27/19 20:15 Narcan 0.4 Mg/1 Ml IV Q2MIN PRN Res Rate </= 8 or 02 SAT < 92% Ondansetron HCl 4 mg 04/27/19 20:15 Zofran IV Q6H PRN Nausea
--- NOTE | 2019-04-29 08:37 | Progress Note ---
Assessment and Plan 73-year-old male who presented to my office on 04/21/2015 with progressive weight loss and profound anorexia. CT scan of chest, abdomen and pelvis were ordered. Patient presented to the emergency department on 04/24/2019 for right- sided abdominal pain and progressive weakness with loss. CT scan of the chest, abdomen pelvis showed a 9.7 cm mass in the sigmoid colon with aortic node involvement. Pt also had hyponatremia, and UTI. Commence on antibiotic and GI consult obtaied.Colonoscopy done. Obsructing sigmoid mass identified. Surgical consult obtaied. Sigmod resection with primary anastomosis done . Did well post op. Preliminary pathology report confirmed colon cancer. -Sigmoid colon mass with suspicious para-aortic lymph node involvement s/p sigmodectomy and priomary anastomosis, 04/27/19, post op Day #2 Doing well post op Has not passed flatus yet Will d/c home when tolerating po -Weight loss Possibly from GI neoplasm -Diverticulosis without diverticulitis stable - Tract infection Urine culture report showed no growth Continue with IV Rocephin - Hyponatremia - improved Normal saline infusion trend sodium level - Malnutrition severe from poor po intake. Dietary consult - DVT and GI prophylaxis with Lovenox and Pepcid -Advised care planning: Patient is full code - Time spent: 30 mins in direct patient care and review of laboratory and radiological data - Dispositon. commence regular diet and d/c home ot f/u with oncologist on out pt Subjective Date of service: 04/29/19 Principal diagnosis: sigmoid colon mass, Wt loss, hyponatremia,polycythemai, UYI Interval history: Has exploratory lap 04/27/19 with resection of sigmoid colon for colonic mas and primary anastomosis. Pt is doing well post op. C/o post op pain. Objective - Exam Narrative Exam: Constitutional:Well-nourished well-developed.In no distress Head: Normocephalic atraumatic Eyes: Pupils are equal round and reactive to light Nose: No enlarged turbinates, no septal deviation. Mouth: Moist mucous membranes. Neck: Supple no thyromegaly. No bruit. No JVD Heart: Regular rate and rhythm, S1-S2 normal. No rubs murmurs or gallop Lungs: Clear to auscultation bilaterally. no rales or rhonchi Abdomen: Soft, dry abdominal surgical sound dressing nontender. Bowel sound are present. Extremities: No edema, no cyanosis, no clubbing. Neuro: Alert oriented Oriented x3. No focal sensory or motor deficit. Skin: No rashes or hyperpigmented spots Musculoskeletal system: No joint pain or swelling Hematological: No petechia or subcutanous hemorrhages. Immunological: No multiple septic spots on the skin Lymphatic: No generalized lymphadenopathy Psychiatry: Euthymic. Calm. - Constitutional Vitals: Vital Signs - 12hr 04/28/19 04/28/19 04/29/19 22:00 23:33 00:05 Temperature 98.7 F Pulse Rate 123 H Respiratory 20 20 20 Rate Blood Pressure 146/80 O2 Sat by Pulse 92 Oximetry 04/29/19 04/29/19 04/29/19 03:45 04:05 06:00 Temperature 98.1 F Pulse Rate 87 Respiratory 18 16 16 Rate Blood Pressure 96/61 O2 Sat by Pulse 89 Oximetry 04/29/19 07:46 Temperature 98.2 F Pulse Rate 85 Respiratory 18 Rate Blood Pressure 132/69 O2 Sat by Pulse 98 Oximetry - Labs CBC & Chem 7: 04/28/19 05:47 04/28/19 05:47
[2019-04-29] MEDS: PEPCID IV SCH ×2 (09:20→21:13)
[2019-04-29] MEDS: D5NS 1,000 ML IV SCH ×2 (09:20→20:40)
--- NOTE | 2019-04-29 12:25 | Event Note ---
Date: 04/29/19 Patient is s/p incomplete colonoscopy revealing an obstructing sigmoid mass at 25 cm, precluding scope passage. 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 He underwent sigmodectomy 04/27/19. Further management per surgery/oncology. GI will sign off, please call if needed.
--- NOTE | 2019-04-29 16:01 | Progress Note ---
Assessment and Plan 73 yo M s/p exploratory laparotomy, sigmoidectomy, primary anastamosis, mobilization of splenic flexure, POD 2 for obstructing colon mass Path from colonoscopy - poorly differentiated adenocarcinoma Plan: 1. adv to full liquid diet 2. maintenance IVF - decrease rate to 75cc/hr 3. 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 Await bowel function 5. DVT ppx - lovenox 6. IS/pulm toilet 7. OOB/PT consult 8. await surgical path Thank you, please call with questions Subjective Date of service: 04/29/19 Narrative: Pt seen and examined. No acute complaints. States he has no pain and is not using AUXILIARY OPERATOR. Has been OOB and ambulating. Tolerating a diet without n/v. No f/c. No BM or flatus Objective Vital Signs - 12hr 04/29/19 04/29/19 04/29/19 04:05 06:00 07:46 Temperature 98.1 F 98.2 F Pulse Rate 87 85 Respiratory 16 16 18 Rate Blood Pressure 96/61 132/69 O2 Sat by Pulse 89 98 Oximetry 04/29/19 11:22 Temperature 97.8 F Pulse Rate 93 H Respiratory 18 Rate Blood Pressure 131/70 O2 Sat by Pulse 94 Oximetry - General physical appearance Narrative Exam: Gen: AAOx3. NAD CV: s1, S2+ Resp: even and unlabored Abd: soft, NT, ND. Incision c/d/i Ext: no c/c/e - Labs 04/28/19 05:47 04/28/19 05:47
[2019-04-29] MEDS ORDERED: PERCOCET 5/325 PO PRN (16:02)
[2019-04-29] MEDS: ROCEPHIN/NS 1 GM/50 ML 1 GM/50 ML BAG IV SCH (18:00)
[2019-04-29] MEDS: LOVENOX SUB-Q SCH (21:13)
[2019-04-30] MEDS: MORPHINE IV PRN (00:08)
[2019-04-30] MEDS: PEPCID IV SCH ×2 (08:58→10:05)
--- NOTE | 2019-04-30 09:01 | Progress Note ---
Assessment and Plan - Patient Problems (1) Generalized weakness Current Visit: Yes Status: Acute Plan to address problem: Status post laparatomy ,continue current management including gradual ambulation (2) Loss of appetite Current Visit: Yes Status: Acute Plan to address problem: Continue supplement and advance as tolerated .Patient has nausea but no vomiting reported (3) Mass of colon Current Visit: Yes Status: Acute Plan to address problem: Post resection ,pathology report still pending (4) Weight loss Current Visit: Yes Status: Acute Plan to address problem: Secondary to ongoing uderlying illness and poor oral; intake Subjective Date of service: 04/30/19 Principal diagnosis: sigmoid colon mass, Wt loss, hyponatremia,polycythemai, UYI Interval history: Covering Dr Jacobsen Patient seen and examined , chart reviewed .Patient stated that he is feeling better overall , denied any chest pain and no shortness of breath . Was able to tolerate breakfast ,passing flatus but no BM yet .No fever reported by nursing staff Objective - Constitutional Vitals: Vital Signs - 12hr 04/29/19 04/30/19 04/30/19 21:12 00:05 00:08 Temperature 98.2 F Pulse Rate 95 H Respiratory 18 17 Rate Blood Pressure 140/84 O2 Sat by Pulse 96 98 Oximetry 04/30/19 04/30/19 04/30/19 00:38 05:01 07:55 Temperature 98.2 F Pulse Rate 94 H Respiratory 17 20 Rate Blood Pressure 145/78 O2 Sat by Pulse 97 95 Oximetry General appearance: Present: mild distress - EENT Eyes: PERRL Ears: left: normal - Neck Neck: supple, normal ROM - Respiratory Respiratory effort: normal Respiratory: bilateral: CTA - Cardiovascular Rhythm: regular Heart Sounds: Present: S1 & S2 Extremities: no ischemia - Gastrointestinal General gastrointestinal: Present: soft, normal bowel sounds Rectal Exam: deferred - Genitourinary Male genitourinary: deferred - Integumentary Integumentary: warm, dry - Musculoskeletal Musculoskeletal: strength equal bilaterally - Neurologic Neurologic: CNII-XII intact - Psychiatric Psychiatric: depressed - Labs CBC & Chem 7: 04/28/19 05:47 04/28/19 05:47
--- NOTE | 2019-04-30 15:18 | Hem/Onc Progress Note ---
Assessment and Plan 1. Colon mass. 2. Sigmoid area. 3. Lymph nodes and periaortic tissue. 4. CTA chest, no lung lesions. Clinically, this is a colonic neoplasm. History of loss of weight is worrisome. 5. I discussed with the patient regarding the need for GI evaluation, biopsy and once surgical proof of cancer, we will see if surgery can be done to get an accurate staging issues. 6. History of fatigue secondary to neoplasm. 7. Elevated hemoglobin and hematocrit likely spurious, so today's hemoglobin is low. 8. Electrolyte issues. I will follow the patient during inpatient stay. 04/30 - pt had sx on 04/27 CEA - 2- not reliable to follow colon ca OP follow u an option - Patient Problems (1) Mass of colon Current Visit: Yes Status: Acute Subjective Date of service: 04/30/19 Principal diagnosis: colon ca Interval history: ambulated a little Objective - Constitutional Vitals: Last Vital Signs Temp 98.0 F 04/30/19 09:07 Pulse 99 H 04/30/19 09:04 Resp 18 04/30/19 09:55 BP 125/81 04/30/19 09:04 Pulse Ox 97 04/30/19 09:55 Pain Intensity (0-10): denies any pain General appearance: no acute distress Performance status: 3-limited selfcare - EENT Eyes: EOM intact ENT: clear oral mucosa Lymph node exam: negative cervical - Neck Neck: normal ROM - Respiratory Respiratory effort: Positive: normal Respiratory: bilateral: CTA - Cardiovascular Heart Sounds: Present: S1 & S2 Extremities: normal temperature - Gastrointestinal General gastrointestinal: Present: soft, other (jake) Rectal Exam: deferred - Genitourinary Male genitourinary: Present: deferred - Integumentary Integumentary: warm - Musculoskeletal Musculoskeletal: strength equal bilaterally, generalized weakness - Neurologic Neurologic: moves all extremities - Labs Lab Results: Laboratory Results - last 24 hr 04/26/19 17:13 Carcinoembryonic Ag 2.0 Medications & Allergies - Medications Allergies/Adverse Reactions: Allergies No Known Allergies Allergy (Verified 04/24/19 20:37) Home Medications: Home Medications Medication Instructions Recorded Confirmed Last Taken Type No Known Home Medications [No 04/25/19 04/25/19 Unknown History Reported Home Medications] Active Medications: Generic Name Dose Route Start Last Admin Trade Name Freq PRN Reason Stop Dose Admin Enoxaparin Sodium 40 mg 04/25/19 22:00 04/29/19 21:13 Lovenox SUB-Q 40 mg QDAY@2200 ELYSSA Administration Famotidine 20 mg 04/25/19 11:00 04/30/19 10:05 Pepcid IV Not Given BID ELYSSA Dextrose/Sodium Chloride 1,000 mls @ 75 mls/hr 04/26/19 10:00 04/29/19 20:40 D5ns IV 125 mls/hr DIRECT ELYSSA Administration Ceftriaxone Sodium 1 gm in 50 mls @ 100 mls/hr 04/29/19 18:00 04/29/19 18:00 Rocephin/Ns 1 Gm/50 Ml IV 100 mls/hr Q24H ELYSSA Administration Protocol Morphine Sulfate 2 mg 04/29/19 16:02 04/30/19 00:08 Morphine IV 2 mg Q4H PRN Administration Pain , Severe (7-10) Naloxone HCl 0.1 mg 04/27/19 20:15 Narcan 0.4 Mg/1 Ml IV Q2MIN PRN Res Rate </= 8 or 02 SAT < 92% Ondansetron HCl 4 mg 04/27/19 20:15 Zofran IV Q6H PRN Nausea Oxycodone/Acetaminophen 1 tab 04/29/19 16:02 Percocet 5/325 PO Q4H PRN Pain, Moderate (4-6)
[2019-04-30] MEDS: D5NS 1,000 ML IV SCH (15:21)
--- NOTE | 2019-04-30 16:56 | Progress Note ---
Assessment and Plan 73 yo M s/p exploratory laparotomy, sigmoidectomy, primary anastamosis, mobilization of splenic flexure, POD 3 for obstructing colon mass Path from colonoscopy - poorly differentiated adenocarcinoma Plan: 1. adv to soft diet for breakfast 2. maintenance IVF - will dc tomorrow 3. PO prn pain control with IV morphine for breakthrough 4. DVT ppx - lovenox 5. IS/pulm toilet 6. OOB/PT consult 7. await surgical path, oncology on board Thank you, please call with questions Subjective Date of service: 04/30/19 Narrative: Pt seen and examined. c/o dizziness with standing today. Did not get sleep last night. States he had some abdominal pain but it was relieved with pain medications. + Flatus, no BM. No n/v, f/c Objective Vital Signs - 12hr 04/30/19 04/30/19 04/30/19 05:01 07:55 09:04 Temperature 98.2 F Pulse Rate 94 H 99 H Respiratory 20 18 Rate Blood Pressure 145/78 125/81 Blood Pressure [Right] O2 Sat by Pulse 97 95 97 Oximetry 04/30/19 04/30/19 04/30/19 09:07 09:55 15:25 Temperature 98.0 F Pulse Rate Respiratory 18 18 Rate Blood Pressure Blood Pressure 134/92 [Right] O2 Sat by Pulse 97 99 Oximetry - General physical appearance Narrative Exam: Gen: AAOx3. NAD CV: s1, S2+ resp: even and unlabored Abd: soft, NT, ND. incision c/d/i Ext: no c/c/e - Labs 04/28/19 05:47 04/28/19 05:47
[2019-04-30] MEDS: ROCEPHIN/NS 1 GM/50 ML 1 GM/50 ML BAG IV SCH (18:20)
[2019-04-30] MEDS: D5W/0.45% NACL/KCL 10 MEQ 10 MEQ/1,000 ML BAG IV SCH (19:27)
[2019-04-30] MEDS: LOVENOX SUB-Q SCH (21:51)
[2019-05-01] MEDS: MORPHINE IV PRN ×2 (03:52→19:56)
[2019-05-01] MEDS: D5W/0.45% NACL/KCL 10 MEQ 10 MEQ/1,000 ML BAG IV SCH (11:56)
[2019-05-01] MEDS: ZOFRAN IV PRN ×2 (11:57→19:04)
--- NOTE | 2019-05-01 13:29 | Progress Note ---
Assessment and Plan 73 yo M s/p exploratory laparotomy, sigmoidectomy, primary anastamosis, mobilization of splenic flexure, POD 4 for obstructing colon mass Path from colonoscopy - poorly differentiated adenocarcinoma Plan: 1. soft diet with ensure supplements - patient advised to eat slowly and small portions 2. dc IVF 3. PO prn pain control with IV morphine for breakthrough 4. DVT ppx - lovenox 5. IS/pulm toilet 6. OOB/PT 7. await surgical path, oncology on board 8. case management consult for home PT as recommended by physical therapy DC planning, anticipate dc from surgery standpoint in next 24 to 48 hours. Thank you, please call with questions Subjective Date of service: 05/01/19 Narrative: Pt seen and examined. States he doesn't feel well today. c/o intermittent nausea but states he still ate most of his breakfast. No n/v. No f/c. He has been OOB and walking to the bathroom with a walker. Minimal abdominal pain, controlled with pain meds. + Flatus, NO BM Objective Vital Signs - 12hr 05/01/19 05/01/19 03:52 04:29 Temperature 98.2 F Pulse Rate 99 H Respiratory 17 20 Rate Blood Pressure 144/86 O2 Sat by Pulse 97 Oximetry - General physical appearance Narrative Exam: Gen; AAOx3. NAD CV: s1, S2+ resp: even and unlabored Abd: soft, NT, ND. Incision c/d/i Ext: no c/c/e - Labs 04/28/19 05:47 04/28/19 05:47
--- NOTE | 2019-05-01 15:28 | Progress Note ---
Assessment and Plan - Patient Problems (1) Generalized weakness Current Visit: Yes Status: Acute Plan to address problem: Status post laparatomy ,continue current management including gradual ambulation (2) Loss of appetite Current Visit: Yes Status: Acute Plan to address problem: Continue supplement and advance as tolerated .Patient has nausea but no vomiting reported (3) Mass of colon Current Visit: Yes Status: Acute Plan to address problem: Post resection ,pathology report still pending (4) Weight loss Current Visit: Yes Status: Acute Plan to address problem: Secondary to ongoing uderlying illness and poor oral; intake Subjective Date of service: 05/01/19 Principal diagnosis: colon ca Interval history: Patient stated that he is not feeling good overall today denied any chest pain and no shortness of breath . Patient now day 4 post laparatome and colonic resection for obstructing colonic mass ,appetite poor but able to drink Ensure , nausea but no vomiting . Objective - Constitutional Vitals: Vital Signs - 12hr 05/01/19 05/01/19 03:52 04:29 Temperature 98.2 F Pulse Rate 99 H Respiratory 17 20 Rate Blood Pressure 144/86 O2 Sat by Pulse 97 Oximetry General appearance: Present: mild distress - EENT Eyes: PERRL ENT: hearing intact - Neck Neck: supple, normal ROM - Respiratory Respiratory effort: normal Respiratory: bilateral: CTA - Cardiovascular Heart Sounds: Present: S1 & S2 Extremities: no ischemia, pulses intact, normal temperature - Gastrointestinal General gastrointestinal: Present: soft, non-distended, normal bowel sounds Localized gastrointestinal: tender: diffuse Rectal Exam: deferred - Integumentary Integumentary: warm, dry - Musculoskeletal Musculoskeletal: strength equal bilaterally - Neurologic Neurologic: CNII-XII intact, moves all extremities - Psychiatric Psychiatric: depressed - Labs CBC & Chem 7: 04/28/19 05:47 04/28/19 05:47
[2019-05-01] MEDS: ROCEPHIN/NS 1 GM/50 ML 1 GM/50 ML BAG IV SCH (18:56)
[2019-05-01] MEDS: LOVENOX SUB-Q SCH (23:19)
[2019-05-02] MEDS: D5W/0.45% NACL/KCL 10 MEQ 10 MEQ/1,000 ML BAG IV SCH ×2 (00:59→16:57)
[2019-05-02 06:24] LABS: Alanine Aminotransferase 9 units/L (7-56); Albumin 2.3 g/dL (3.9-5); BUN/Creatinine Ratio 12; Blood Urea Nitrogen 6 mg/dL (9-20); Calcium 7.9 mg/dL (8.4-10.2); Hemolysis Index 4
--- NOTE | 2019-05-02 07:44 | Hem/Onc Progress Note ---
Assessment and Plan 1. Colon mass. colon ca 2. Sigmoid area. 3. Lymph nodes and periaortic tissue. 4. CTA chest, no lung lesions. Clinically, this is a colonic neoplasm. History of loss of weight is worrisome. 5. I had discussed with the patient regarding the GI evaluation, biopsy and surgery and OP follow up. 6. History of fatigue secondary to neoplasm. 7. Elevated hemoglobin and hematocrit likely spurious, later - hemoglobin was low. 8. h/o Electrolyte issues. I will follow the patient during inpatient stay. 05/02 - pt had sx on 04/27 [facility] - 2- not reliable to follow colon ca OP follow up an option will await path of sx - Patient Problems (1) Mass of colon Current Visit: Yes Status: Acute Subjective Date of service: 05/02/19 Principal diagnosis: colon ca Interval history: sitting - trying to ambulate - nausea + - flatus + Objective - Constitutional Vitals: Last Vital Signs Temp 97.9 F 05/02/19 03:58 Pulse 108 H 05/02/19 03:58 Resp 20 05/02/19 03:58 BP 133/89 05/02/19 03:58 Pulse Ox 97 05/02/19 03:58 Pain Intensity (0-10): 1/10 (abdo - post op) General appearance: mild distress Performance status: 3-limited selfcare - EENT Eyes: EOM intact ENT: hearing intact Lymph node exam: negative cervical - Neck Neck: normal ROM - Respiratory Respiratory effort: Positive: normal Respiratory: bilateral: CTA - Cardiovascular Heart Sounds: Present: S1 & S2 Extremities: normal temperature - Gastrointestinal General gastrointestinal: Present: soft, other (s/p sx) Rectal Exam: deferred - Genitourinary Male genitourinary: Present: deferred - Integumentary Integumentary: warm - Musculoskeletal Musculoskeletal: generalized weakness - Neurologic Neurologic: moves all extremities - Labs Lab Results: Laboratory Results - last 24 hr 05/02/19 05:25 Sodium 139 Potassium 3.1 L D Chloride 99.7 Carbon Dioxide 30 Anion Gap 12 BUN 6 L Creatinine 0.5 L Estimated GFR > 60 BUN/Creatinine Ratio 12 Glucose 118 H Calcium 7.9 L Total Bilirubin 0.40 AST 25 ALT 9 Alkaline Phosphatase 78 Total Protein 5.3 L Albumin 2.3 L Albumin/Globulin Ratio 0.8 Medications & Allergies - Medications Allergies/Adverse Reactions: Allergies No Known Allergies Allergy (Verified 04/24/19 20:37) Home Medications: Home Medications Medication Instructions Recorded Confirmed Last Taken Type No Known Home Medications [No 04/25/19 04/25/19 Unknown History Reported Home Medications] Active Medications: Generic Name Dose Route Start Last Admin Trade Name Freq PRN Reason Stop Dose Admin Enoxaparin Sodium 40 mg 04/25/19 22:00 05/01/19 23:19 Lovenox SUB-Q 40 mg QDAY@2200 ELYSSA Administration Ceftriaxone Sodium 1 gm in 50 mls @ 100 mls/hr 04/29/19 18:00 05/01/19 18:56 Rocephin/Ns 1 Gm/50 Ml IV 100 mls/hr Q24H ELYSSA Administration Protocol Potassium Chloride/Dextrose/Sod Cl 10 meq in 1,000 mls @ 75 mls/hr 04/30/19 17:00 05/02/19 00:59 D5w/0.45% Nacl/Kcl 10 Meq IV 75 mls/hr DIRECT ELYSSA Administration Morphine Sulfate 2 mg 04/29/19 16:02 05/01/19 19:56 Morphine IV 2 mg Q4H PRN Administration Pain , Severe (7-10) Naloxone HCl 0.1 mg 04/27/19 20:15 Narcan 0.4 Mg/1 Ml IV Q2MIN PRN Res Rate </= 8 or 02 SAT < 92% Ondansetron HCl 4 mg 04/27/19 20:15 05/01/19 19:04 Zofran IV 4 mg Q6H PRN Administration Nausea Oxycodone/Acetaminophen 1 tab 04/29/19 16:02 Percocet 5/325 PO Q4H PRN Pain, Moderate (4-6)
[2019-05-02 08:16] LABS: Basophils % (Auto) 0.3 % (0.0-1.8); Eosinophils # (Auto) 0.1 K/mm3 (0.0-0.4); Hematocrit 27.5 % (35.5-45.6); Hemoglobin 9.1 gm/dl (11.8-15.2); Lymphocytes # (Auto) 1.4 K/mm3 (1.2-5.4); Lymphocytes % (Auto) 23.4 % (13.4-35.0); Mean Corpuscular HGB Conc 33 % (32-34); Mean Corpuscular Volume 85 fl (84-94); Monocytes # (Auto) 0.5 K/mm3 (0.0-0.8); Monocytes % (Auto) 8.2 % (0.0-7.3); Platelet Count 422 K/mm3 (140-440); Red Blood Count 3.26 M/mm3 (3.65-5.03); Red Cell Distribution Width 15.5 % (13.2-15.2)
--- NOTE | 2019-05-02 08:44 | Progress Note ---
Assessment and Plan 73-year-old male who presented to my office on 04/21/2015 with progressive weight loss and profound anorexia. CT scan of chest, abdomen and pelvis were ordered. Patient presented to the emergency department on 04/24/2019 for right- sided abdominal pain and progressive weakness with loss. CT scan of the chest, abdomen pelvis showed a 9.7 cm mass in the sigmoid colon with aortic node involvement. Pt also had hyponatremia, and UTI. Commence on antibiotic and GI consult obtaied.Colonoscopy done. Obsructing sigmoid mass identified. Surgical consult obtaied. Sigmod resection with primary anastomosis done . Did well post op. Preliminary pathology report confirmed colon cancer. -Sigmoid colon mass with suspicious para-aortic lymph node involvement s/p sigmodectomy and priomary anastomosis, 04/27/19, post op Day #5 Doing well post op Has not passed flatus yet Will d/c home when tolerating po - Hypokalemia Supplement and check Mg -Weight loss Possibly from GI neoplasm -Diverticulosis without diverticulitis stable - Tract infection Urine culture report showed no growth Continue with IV Rocephin - Hyponatremia - improved Normal saline infusion trend sodium level - Malnutrition severe from poor po intake. Dietary consult - DVT and GI prophylaxis with Lovenox and Pepcid -Advised care planning: Patient is full code - Time spent: 30 mins in direct patient care and review of laboratory and radiological data - Dispositon. commence regular diet and d/c home ot f/u with oncologist on out pt Subjective Date of service: 05/02/19 Principal diagnosis: colon ca, weight loss Interval history: Has exploratory lap 04/27/19 with resection of sigmoid colon for colonic mass and primary anastomosis. Pt is doing well post op. C/o post op pain still not eating Objective - Exam Narrative Exam: Constitutional:Well-nourished well-developed. In no distress Head: Normocephalic atraumatic Eyes: Pupils are equal round and reactive to light Nose: No enlarged turbinates, no septal deviation. Mouth: Moist mucous membranes. Neck: Supple no thyromegaly. No bruit. No JVD Heart: Regular rate and rhythm, S1-S2 normal. No rubs murmurs or gallop Lungs: Clear to auscultation bilaterally. no rales or rhonchi Abdomen: Soft, dry abdominal surgical sound dressing nontender. Bowel sound are present. Extremities: No edema, no cyanosis, no clubbing. Neuro: Alert oriented Oriented x3. No focal sensory or motor deficit. Skin: No rashes or hyperpigmented spots Musculoskeletal system: No joint pain or swelling Hematological: No petechia or subcutanous hemorrhages. Immunological: No multiple septic spots on the skin Lymphatic: No generalized lymphadenopathy Psychiatry: Euthymic. Calm. - Constitutional Vitals: Vital Signs - 12hr 05/01/19 05/02/19 23:48 03:58 Temperature 98.5 F 97.9 F Pulse Rate 107 H 108 H Respiratory 20 20 Rate Blood Pressure 151/91 133/89 O2 Sat by Pulse 99 97 Oximetry - Labs CBC & Chem 7: 05/02/19 07:59 05/02/19 05:25 Labs: Abnormal lab results 05/02/19 05/02/19 Range/Units 05:25 07:59 RBC 3.26 L (3.65-5.03) M/mm3 Hgb 9.1 L (11.8-15.2) gm/dl Hct 27.5 L (35.5-45.6) % RDW 15.5 H (13.2-15.2) % [place] % (Auto) 8.2 H (0.0-7.3) % Potassium 3.1 L D (3.6-5.0) mmol/L BUN 6 L (9-20) mg/dL Creatinine 0.5 L (0.8-1.5) mg/dL Glucose 118 H (75-100) mg/dL Calcium 7.9 L (8.4-10.2) mg/dL Total Protein 5.3 L (6.3-8.2) g/dL Albumin 2.3 L (3.9-5) g/dL
[2019-05-02] MEDS: KCL 10MEQ/100ML 10 MEQ/100 ML BAG IV SCH ×4 (14:00→17:00)
[2019-05-02] MEDS: ROCEPHIN/NS 1 GM/50 ML 1 GM/50 ML BAG IV SCH ×2 (17:30→18:55)
[2019-05-02] MEDS: LOVENOX SUB-Q SCH (22:20)
[2019-05-03] MEDS: D5W/0.45% NACL/KCL 10 MEQ 10 MEQ/1,000 ML BAG IV SCH (04:29)
[2019-05-03 05:14] LABS: Basophils % (Auto) 0.4 % (0.0-1.8); Eosinophils # (Auto) 0.1 K/mm3 (0.0-0.4); Eosinophils % (Auto) 1.6 % (0.0-4.3); Hematocrit 24.4 % (35.5-45.6); Hemoglobin 8.1 gm/dl (11.8-15.2); Lymphocytes # (Auto) 1.2 K/mm3 (1.2-5.4); Lymphocytes % (Auto) 24.5 % (13.4-35.0); Mean Corpuscular HGB Conc 33 % (32-34); Mean Corpuscular Volume 85 fl (84-94); Monocytes # (Auto) 0.6 K/mm3 (0.0-0.8); Monocytes % (Auto) 12.4 % (0.0-7.3); Platelet Count 308 K/mm3 (140-440); Red Blood Count 2.87 M/mm3 (3.65-5.03); Red Cell Distribution Width 15.3 % (13.2-15.2)
[2019-05-03 05:28] LABS: Alanine Aminotransferase 14 units/L (7-56); Albumin 2.2 g/dL (3.9-5); BUN/Creatinine Ratio 12; Blood Urea Nitrogen 6 mg/dL (9-20); Calcium 8.1 mg/dL (8.4-10.2); Hemolysis Index 1
[2019-05-03] MEDS: ZOFRAN IV PRN (09:33)
--- NOTE | 2019-05-03 09:33 | Discharge Summary ---
Providers - Providers Date of Admission: 04/24/19 23:53 Date of discharge: 05/03/19 Attending physician: KAILEE QUINTANILLA 04/25/19 02:01 Consult to Dietitian/Nutrition [CONS] Routine Physician Instructions: Reason For Exam: Reason for Consult: Poor oral intake 04/25/19 09:17 Physical Therapy Evaluation and Treat [CONS] Routine Comment: Reason For Exam: Weakness 04/25/19 10:37 Consult to Physician [CONS] Routine Comment: MARY Consulting Provider: OLIVIA TUCKER Physician Instructions: CONSULT WAS CALLED TO /DUARTE Reason For Exam: sigmod mass with profound weight loss 04/25/19 10:38 Consult to Physician [CONS] Routine Comment: MARY Consulting Provider: LILIA MOE Physician Instructions: WAS NOTIFIED. Reason For Exam: Polycythemia with likely neoplastic colonic mass 04/26/19 15:32 Consult to Physician [CONS] Routine Comment: Consulting Provider: SELENA CUBA Physician Instructions: Reason For Exam: Sigmoid mass 04/28/19 11:02 Physical Therapy Evaluation and Treat [CONS] Routine Comment: Reason For Exam: post op 05/01/19 10:31 Consult to Case Management [CONS] Routine Services Needed at Discharge: Physical Therapy Notified:: joseph notified Primary care physician: KAILEE QUINTANILLA Hospitalization Reason for admission: abdominal pain, colon cancer of the sigmoid, with loss, hyponatremia. Condition: Stable Pertinent studies: EKG shows atrial fibrillation Echo showed ejection fraction of 45-50% with systolic function IN THE LOWER LIMITS OF NORMAL Arterial Doppler shows evidence of focal stenosis of the right distal superficial femoral artery vascular consult obtained Procedures: Colectomy for sigmoid colon cancer with primary anastomosis Hospital course: 73-year-old male who presented to my office on 04/21/2015 with progressive weight loss and profound anorexia. CT scan of chest, abdomen and pelvis were ordered. Patient presented to the emergency department on 04/24/2019 for right- sided abdominal pain and progressive weakness with loss. CT scan of the chest, abdomen pelvis showed a 9.7 cm mass in the sigmoid colon with aortic node involvement. Pt also had hyponatremia, and UTI. Commence on antibiotic and GI consult obtaied.Colonoscopy done. Obsructing sigmoid mass identified. Surgical consult obtained. Sigmod resection with primary anastomosis done 04/27/19. Did well post op. Preliminary pathology report confirmed colon cancer. Had evidence of hypokalemia that was fairly well corrected. Patient is ever been discharged today as he is allergic to Dilantin. Positive flatus. On bleaching on the floor. Follow-up with oncologist was consulted during this admission in 1 week. Primary care physician in 3- 5 days and the surgeon in 10 days. This happened with this. The patient and his expressed understanding. Disposition: DC-30 STILL A PATIENT Core Measure Documentation - Palliative Care Palliative Care/ Comfort Measures: Not Applicable - Core Measures Any of the following diagnoses?: none Exam - Physical Exam Narrative exam: Constitutional:Well-nourished well-developed. In no distress Head: Normocephalic atraumatic Eyes: Pupils are equal round and reactive to light Nose: No enlarged turbinates, no septal deviation. Mouth: Moist mucous membranes. Neck: Supple no thyromegaly. No bruit. No JVD Heart: Regular rate and rhythm, S1-S2 normal. No rubs murmurs or gallop Lungs: Clear to auscultation bilaterally. no rales or rhonchi Abdomen: Soft, dry abdominal surgical sound dressing nontender. Bowel sound are present. Extremities: No edema, no cyanosis, no clubbing. Neuro: Alert oriented Oriented x3. No focal sensory or motor deficit. Skin: No rashes or hyperpigmented spots Musculoskeletal system: No joint pain or swelling Hematological: No petechia or subcutanous hemorrhages. Immunological: No multiple septic spots on the skin Lymphatic: No generalized lymphadenopathy Psychiatry: Euthymic. Calm. - Constitutional Vitals: Temp Pulse Resp BP Pulse Ox 98.7 F 96 H 19 124/69 98 05/03/19 03:53 05/03/19 03:53 05/03/19 03:53 05/03/19 03:53 05/03/19 03:53 Plan Activity: fall precautions Weight Bearing Status: Non-Weight Bearing Diet: regular Follow up with: SELENA CUBA DO [Staff Physician] - 14 Days [facility] MD JT [Referring] - 14 Days KAILEE QUINTANILLA MD [Primary Care Provider] - 3 Days LILIA MOE MD [Staff Physician] - 7 Days Prescriptions: Potassium Chloride [Klor-Con M15] 15 meq PO BID #10 tab.er.prt oxyCODONE /ACETAMINOPHEN [Percocet 5/325 mg] 1 tab PO Q4H PRN #15 tablet PRN Reason: Pain, Moderate (4-6)
--- NOTE | 2019-05-03 12:56 | Hem/Onc Progress Note ---
Assessment and Plan 1. Colon mass. colon ca 2. Sigmoid area. 3. Lymph nodes and periaortic tissue. 4. CTA chest, no lung lesions. Clinically, this is a colonic neoplasm. History of loss of weight is worrisome. 5. I had discussed with the patient regarding the GI evaluation, biopsy and surgery and OP follow up. 6. History of fatigue secondary to neoplasm. 7. Elevated hemoglobin and hematocrit likely spurious, later - hemoglobin was low. 8. h/o Electrolyte issues. I will follow the patient during inpatient stay. pt had sx on 04/27 [facility] - 2- not reliable to follow colon ca OP follow up an option OP follow up - path of sx - Patient Problems (1) Mass of colon Status: Acute Subjective Date of service: 05/03/19 Principal diagnosis: colon ca Interval history: feeling better Objective - Exam Narrative Exam: Pain none General appearance no acute distress Performance status limited selfcare Eyes EOM intact ENT hearing intact/ Clear oral mucosa LNs cervical not palpable Neck normal ROM Respiratory Normal Breath sounds - CTA CVS S1 S2 + Extremities - normal temperature/ no edema General GI Soft non tender - s/p sx Rectal deferred Male - deferred Skin warm Musculoskeletal generalized weakness/ strength equal bilaterally Neurologically no Focal deficit/ moves all extremities - Constitutional Vitals: Last Vital Signs Temp 98.1 F 05/03/19 09:22 Pulse 124 H 05/03/19 09:22 Resp 20 05/03/19 09:22 BP 137/88 05/03/19 09:22 Pulse Ox 96 05/03/19 09:22 - Labs Lab Results: Laboratory Results - last 24 hr 05/03/19 05/03/19 04:40 04:40 WBC 5.1 RBC 2.87 L Hgb 8.1 L Hct 24.4 L MCV 85 MCH 28 MCHC 33 RDW 15.3 H Plt Count 308 Lymph % (Auto) 24.5 [place] % (Auto) 12.4 H Eos % (Auto) 1.6 Baso % (Auto) 0.4 Lymph # 1.2 [place] # 0.6 Eos # 0.1 Baso # 0.0 Seg Neutrophils % 61.1 Seg Neutrophils # 3.1 Sodium 139 Potassium 3.5 L Chloride 100.6 Carbon Dioxide 30 Anion Gap 12 BUN 6 L Creatinine 0.5 L Estimated GFR > 60 BUN/Creatinine Ratio 12 Glucose 112 H Calcium 8.1 L Magnesium 1.70 Total Bilirubin 0.30 AST 36 ALT 14 Alkaline Phosphatase 78 Total Protein 5.0 L Albumin 2.2 L Albumin/Globulin Ratio 0.8 Medications & Allergies - Medications Allergies/Adverse Reactions: Allergies No Known Allergies Allergy (Verified 04/24/19 20:37) Home Medications: Home Medications Medication Instructions Recorded Confirmed Last Taken Type Potassium Chloride [Klor-Con M15] 15 meq PO BID #10 tab.er.prt 05/03/19 Unknown Rx oxyCODONE /ACETAMINOPHEN [Percocet 1 tab PO Q4H PRN #15 tablet 05/03/19 Unknown Rx 5/325 mg] Active Medications: Generic Name Dose Route Start Last Admin Trade Name Freq PRN Reason Stop Dose Admin Enoxaparin Sodium 40 mg 04/25/19 22:00 05/02/19 22:20 Lovenox SUB-Q 40 mg QDAY@2200 ELYSSA Administration Ceftriaxone Sodium 1 gm in 50 mls @ 100 mls/hr 04/29/19 18:00 05/02/19 17:30 Rocephin/Ns 1 Gm/50 Ml IV 100 mls/hr Q24H ELYSSA Administration Protocol Potassium Chloride/Dextrose/Sod Cl 10 meq in 1,000 mls @ 75 mls/hr 04/30/19 17:00 05/03/19 04:29 D5w/0.45% Nacl/Kcl 10 Meq IV 75 mls/hr DIRECT ELYSSA Administration Morphine Sulfate 2 mg 04/29/19 16:02 05/01/19 19:56 Morphine IV 2 mg Q4H PRN Administration Pain , Severe (7-10) Naloxone HCl 0.1 mg 04/27/19 20:15 Narcan 0.4 Mg/1 Ml IV Q2MIN PRN Res Rate </= 8 or 02 SAT < 92% Ondansetron HCl 4 mg 04/27/19 20:15 05/03/19 09:33 Zofran IV 4 mg Q6H PRN Administration Nausea Oxycodone/Acetaminophen 1 tab 04/29/19 16:02 Percocet 5/325 PO Q4H PRN Pain, Moderate (4-6)
[2019-05-03 13:00] VITALS: BP 120/82
[2019-05-03 14:52] LABS: Iron 34 ug/dL (49-181); Total Iron Binding Capacity 158 mcg/dL (250-450)
== END 2019-05-03 17:10 | disposition home health service (06) | DRG 329 ==
LOC: ED 19:00 → 2B-ACE 23:53 → 3B-SURG 04-27 18:17
PROVIDERS: ADMIT Family Medicine; ATTEND Family Medicine
PROC: 0DBN8ZX Excision of Sigmoid Colon, Via Natural or Artificial Opening Endoscopic, Diagnostic (ICD-10-PCS; principal; 2019-04-26)
PROC: 0DBN0ZZ Excision of Sigmoid Colon, Open Approach (ICD-10-PCS; 2019-04-27)
PROC: 0DNN0ZZ Release Sigmoid Colon, Open Approach (ICD-10-PCS; 2019-04-27)
DX: C18.7 Malignant neoplasm of sigmoid colon (principal); E43 Unspecified severe protein-calorie malnutrition; E87.1 Hypo-osmolality and hyponatremia; N39.0 Urinary tract infection, site not specified; E87.2 Acidosis; K66.0 Peritoneal adhesions (postprocedural) (postinfection); E87.6 Hypokalemia; K57.30 Diverticulosis of large intestine without perforation or abscess without bleeding; D75.1 Secondary polycythemia; Z68.22 Body mass index [BMI] 22.0-22.9, adult
CPT/HCPCS: 36415; 70450; 71045; 71275; 74174; 80048; 80053; 80076; 81001; 82140; 82378; 82607; 82728; 82747; 82803; 83550; 83690; 83735; 84100; 84439; 84443; 84484; 85025; 86850; 86900; 86901; 86920; 87086; 88304; 88305; 88309; 88341; 88342; 93005; 93010; 94760; G0378; J0690; J0696; J1100; J1170; J1650; J1885; J2250; J2270; J2405; J2704; J3010; J3480; J7030; J7040; J7042; J7120; Q9967

== ENCOUNTER 2019-06-23 09:33 | Outpatient (CLI) | payer MEDICARE ==
--- NOTE | 2019-06-23 14:12 | PET Report ---
PET/CT HISTORY: C18.9. Staging of colon cancer TECHNIQUE: The patient's fasting blood glucose was 100. The patient weighed 145 lbs. The patient w as injected with 14.4 mCi of FDG in the left wrist at 1027 and imaging was started at 1131. The jorge ent was imaged from the skull base to the thighs. COMPARISON: None at this facility FINDINGS: FDG findings: There is physiologic distribution of the radiotracer. No focal area of pathologic incr eased radiotracer activity is identified. Mean liver SUV measures 2.6. Non-FDG findings: The imaged brain is unremarkable. No cervical adenopathy or mass is detected. Heart and mediastinal structures are unremarkable. The lungs are clear. No suspicious nodule or mass. Normal liver, biliary system, pancreas, spleen, kidneys and adrenal glands. Surgical suture line is n oted in the sigmoid colon. No obvious recurrent mass, obstruction or inflammation. No abdominal or pe lvic adenopathy. No suspicious bony lesion is detected. IMPRESSION: Negative PET/CT. Signer Name: Trevor Haines Jr, MD Signed: 06/23/2019 2:08 PM Workstation Name: [id number]
== END 2019-06-23 09:34 | disposition home or self-care (01) ==
LOC: PET 09:33
PROVIDERS: ATTEND Internal Medicine Hematology & Oncology
DX: C18.9 Malignant neoplasm of colon, unspecified (principal)
CPT/HCPCS: 78815; 82962; A9552